=== PATIENT | female | born 1990 | race African-American/Black ===

== ENCOUNTER 2017-04-19 08:44 | Emergency (ER) | payer OTHER, MEDICAID ==
[2017-04-19] MEDS ORDERED: ACETAMINOPHEN 325 MG TABLET PO ONE (08:55)
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
[2017-04-19] MEDS ORDERED: HYDROCODONE/ACETAMINOPHEN 5-325 MG TABLET PO ONE (09:54)
[2017-04-19 10:35] VITALS: BP 127/82
== END 2017-04-19 10:25 | disposition home or self-care (01) ==
LOC: ER 08:44
DX: S40.011A Contusion of right shoulder, initial encounter (principal); V03.10XA Pedestrian on foot injured in collision with car, pick-up truck or van in traffic accident, initial encounter; Y92.410 Unspecified street and highway as the place of occurrence of the external cause
CPT/HCPCS: 99283

== ENCOUNTER 2017-08-30 19:14 | Emergency (ER) | payer MEDICAID, MEDICARE ==
[2017-08-30] MEDS ORDERED: FENTANYL CITRATE INJ/PF 100 MCG/2 ML AMPUL IV ONE (19:46)
--- NOTE | 2017-08-30 19:48 | ER Document Report ---
ED Medical Screen (RME) - General Chief Complaint: Abdominal Pain Stated Complaint: ABDOMINAL PAIN Time Seen by Provider: 08/30/17 19:42 Notes: RME DISCLOSURE I have seen this patient as part of a Rapid Medical Evaluation and, if applicable, placed any initially appropriate orders. The patient will be seen and fully evaluated, including a full history and physical exam, by a provider ( in Main ED or Fast Track) when a room becomes available. 27-year-old female PMH ovarian cyst, left-sided, here with complaints of sudden onset left lower quadrant abdominal pain that started several hours ago. She has had some nausea and vomiting with this as well but no diarrhea. She has not taken anything for the pain. Her largest ovarian cyst has been 7.7 cm requiring operative intervention. No dysuria hematuria frequency hesitancy back pain flank pain fevers chills vaginal bleeding discharge. EXAM Moderate left upper/lower quadrant tenderness TRAVEL OUTSIDE OF THE [place] IN LAST 30 DAYS: No - Related Data Allergies/Adverse Reactions: No Known Allergies Allergy (Verified 08/30/17 19:16) Past Medical History - Social History Frequency of alcohol use: None Drug Abuse: None Renal/ Medical History: Denies: Hx Peritoneal Dialysis Past Surgical History: Reports: Hx Gynecologic Surgery Physical Exam - Vital signs Vitals: Pulse Resp BP Pulse Ox 88 18 126/81 H 100 08/30/17 19:33 08/30/17 19:33 08/30/17 19:33 08/30/17 19:33 Course - Vital Signs Vital signs: Temp Pulse Resp BP Pulse Ox 88 18 126/81 H 100 08/30/17 19:33 08/30/17 19:33 08/30/17 19:33 08/30/17 19:33
[2017-08-30 20:19] LABS: ABSOLUTE BASOPHILS # (AUTO) 0.1 10^3/uL (0.0-0.2); ABSOLUTE EOSINOPHILS # (AUTO) 0.1 10^3/uL (0.0-0.6); ABSOLUTE LYMPHOCYTES (AUTO) 1.8 10^3/uL (0.5-4.7); ABSOLUTE MONOCYTES (AUTO) 0.5 10^3/uL (0.1-1.4); ABSOLUTE NEUT (AUTO) 7.9 10^3/uL (1.7-8.2); EOSINOPHILS % (AUTO) 0.6 % (0-6); HEMATOCRIT 33.7 % (36.0-47.0); HEMOGLOBIN 10.8 g/dL (12.0-15.5); LYMPHOCYTES % (AUTO) 17.2 % (13-45); MEAN CORPUSCULAR HEMOGLOBIN 25.8 pg (27.0-33.4); MEAN CORPUSCULAR HGB CONC 32.1 g/dL (32.0-36.0); MEAN CORPUSCULAR VOLUME 81 fl (80-97); MONOCYTES % (AUTO) 5.1 % (3-13); PLATELET COUNT 463 10^3/uL (150-450); RED BLOOD COUNT 4.18 10^6/uL (3.72-5.28); RED CELL DISTRIBUTION WIDTH 16.4 % (11.5-14.0); SEGMENTED NEUTROPHILS % (AUTO) 76.1 % (42-78); TOTAL CELLS COUNTED % (AUTO) 100 %; WHITE BLOOD COUNT 10.3 10^3/uL (4.0-10.5)
[2017-08-30 20:53] LABS: ALANINE AMINOTRANSFERASE 18 U/L (9-52); ALBUMIN 4.6 g/dL (3.5-5.0); ALKALINE PHOSPHATASE 56 U/L (38-126); ANION GAP 12 (5-19); ASPARTATE AMINO TRANSFERASE 52 U/L (14-36); BILIRUBIN,DIRECT 0.4 mg/dL (0.0-0.4); BILIRUBIN,TOTAL 1.1 mg/dL (0.2-1.3); BLOOD UREA NITROGEN 12 mg/dL (7-20); CALCIUM 9.4 mg/dL (8.4-10.2); CARBON DIOXIDE 23 mmol/L (22-30); CHLORIDE 103 mmol/L (98-107); GLUCOSE 90 mg/dL (75-110); LIPASE 139.6 U/L (23-300); POTASSIUM 3.9 mmol/L (3.6-5.0); SODIUM 138.1 mmol/L (137-145); TOTAL PROTEIN 8.4 g/dL (6.3-8.2)
--- NOTE | 2017-08-30 20:58 | ER Document Report ---
ED GI/ - General Chief Complaint: Abdominal Pain Stated Complaint: ABDOMINAL PAIN Time Seen by Provider: 08/30/17 19:42 Mode of Arrival: Ambulatory Information source: Patient TRAVEL OUTSIDE OF THE [place] IN LAST 30 DAYS: No - HPI Patient complains to provider of: Abdominal pain Notes: 08/30/17 20:56 The patient is here with complaints of abdominal pain. States the pain is in the left lower abdomen. The pain started suddenly approximately 2 hours ago. She does have a prior history of left ovarian cyst that has required surgery as well as previous ectopic . She states that her last menstrual cycle ended on Tuesday. She had one episode of nausea vomiting when the pain started. She denies fevers. She denies dysuria or hematuria. She denies any current vaginal bleeding or discharge. No rash. No injury. She denies any chest pain or shortness of breath. She denies any numbness, tingling, weakness. She was given fentanyl which has improved her pain. Pain is worse with movement or touching the area, nothing in particular seems to make it better. She denies any other complaints at this time. - Related Data Allergies/Adverse Reactions: No Known Allergies Allergy (Verified 08/30/17 19:16) Past Medical History - Social History Smoking Status: Never Smoker Frequency of alcohol use: None Drug Abuse: None Family History: Reviewed & Not Pertinent Patient has suicidal ideation: No Patient has homicidal ideation: No Renal/ Medical History: Denies: Hx Peritoneal Dialysis Past Surgical History: Reports: Hx Gynecologic Surgery Review of Systems - Review of Systems -: Yes All other systems reviewed and negative Physical Exam - Vital signs Vitals: Pulse Resp BP Pulse Ox 88 18 126/81 H 100 08/30/17 19:33 08/30/17 19:33 08/30/17 19:33 08/30/17 19:33 - Notes Notes: GENERAL: alert, cooperative, nontoxic, no distress. HEAD: normocephalic, atraumatic EYES: conjunctiva pink without discharge, no external redness or swelling. EARS: no external swelling, no external redness NOSE: atraumatic, no external swelling MOUTH/THROAT: mucous membranes moist and pink, posterior pharynx without erythema, swelling, exudate. No trismus or drooling. NECK: soft, supple, full range of motion, no meningismus. CHEST: no distress, lungs clear and equal throughout. No wheezing, rales, rhonchi. CARDIAC: regular rate and rhythm, no murmur, normal capillary refill, normal pulses. No peripheral edema noted. ABDOMEN: Soft, tender to the left lower quadrant. No rebound tenderness. Guarding. No rigidity. BACK: full range of motion, no CVA tenderness. EXTREMITIES: full range of motion of all extremities. No redness, no swelling. NEURO: alert and oriented x 3, no focal deficits, full range of motion of all extremities. PYSCH: appropriate mood, affect. Patient is cooperative. SKIN: pink, warm, dry, no rash. : Performed with female gyn at the bedside. No external lesions. Cervix is closed. No discharge. Mild generalized tenderness to the right and left adnexa. Mild cervical motion tenderness. No masses. Course - Re-evaluation Re-evalutation: 08/30/17 23:35 The patient is nontoxic appearing with stable vitals. The patient is having left lower pelvic pain. She is a prior history of ovarian cyst. Pelvic exam shows no discharge. Blood work is unremarkable aside from some mild anemia which the patient states she has a history of. Urinalysis shows no signs of infection and urine is negative. No sign of ectopic . Patient has no signs of PID. Ultrasound today shows 2 ovarian cyst on the left ovary. This is the likely source of her pain today. She will be discharged home with NSAIDs and Ultram with a referral to [facility]. Follow-up with [facility] at the next available appointment. Follow-up sooner for increasing pain, high fever, persistent vomiting, or for any further concerns. The patient is noted to have elevated blood pressure during today's emergency department visit. The patient was informed of this finding. The patient was instructed that this may be related to pre-hypertension and requires further evaluation with a primary care provider. The patient has no hypertensive symptoms at this time. The patient's emergency department workup and current diagnosis were explained to the patient and or family. Follow-up instructions were provided. Medications if prescribed were discussed. Instructions for when to return to the emergency department including specific worrisome symptoms were discussed with the patient and/or family. - Vital Signs Vital signs: Temp Pulse Resp BP Pulse Ox 88 18 123/79 100 08/30/17 19:33 08/30/17 22:01 08/30/17 22:01 08/30/17 22:01 - Laboratory Result Diagrams: 08/30/17 20:07 08/30/17 20:07 Laboratory results interpreted by me: 08/30/17 08/30/17 08/30/17 20:07 20:07 21:15 Hgb 10.8 L Hct 33.7 L MCH 25.8 L RDW 16.4 H Plt Count 463 H AST 52 H Total Protein 8.4 H Urine Ketones TRACE H - Diagnostic Test Radiology reviewed: Image reviewed, Reports reviewed - Ultrasound of the pelvis shows 2 complex cyst in the left ovary. Discharge - Discharge Clinical Impression: Left ovarian cyst Anemia Qualifiers: Anemia type: unspecified type Qualified Code(s): D64.9 - Anemia, unspecified Condition: Stable Disposition: HOME, SELF-CARE Instructions: Ovarian Cyst ([facility]), Anemia ([facility]) Additional Instructions: Take medications as prescribed. Follow-up with [facility] at the next available appointment. Follow-up sooner for increasing pain, high fever, persistent vomiting, or for any further concerns. Your blood pressure was elevated during today's visit. Have this rechecked with your doctor. The medication you were prescribed today may cause drowsiness. Do not drive or operate heavy machinery while taking this medication. Prescriptions: Tramadol HCl [Ultram 50 mg Tablet] 50 mg PO Q6HP PRN #12 tablet PRN Reason: Naproxen [Naprosyn] 500 mg PO BID #20 tablet Forms: Elevated Blood Pressure, Smoking Cessation Education Referrals: TRE FIORE MD [ACTIVE STAFF] - Follow up as needed [facility] [Provider Group] - Follow up as needed
[2017-08-30 21:44] LABS: APPEARANCE,URINE SLIGHTLY-CLOUDY; BILIRUBIN,URINE NEGATIVE (NEGATIVE); COLOR,URINE YELLOW; GLUCOSE, URINE NEGATIVE (NEGATIVE); KETONES,URINE TRACE mg/dL (NEGATIVE); LEUKOCYTE ESTERASE,URINE NEGATIVE (NEGATIVE); NITRITE,URINE NEGATIVE (NEGATIVE); PROTEIN,URINE NEGATIVE (NEGATIVE); UROBILINOGEN,URINE NEGATIVE mg/dL (<2.0)
[2017-08-30] MEDS ORDERED: LIDOCAINE 1% INJ-PF (10 MG/ML) 30 ML SDV INJ ONE (22:41)
[2017-08-30] MEDS ORDERED: CEFTRIAXONE INJ 250 MG VIAL IM ONE (22:41)
[2017-08-30] MEDS ORDERED: AZITHROMYCIN 250 MG TABLET PO ONE (22:41)
[2017-08-30 23:01] LABS: T.VAGINALIS (WET MOUNT) NO TRICHOMONAS SEEN; WBCS (WET MOUNT) RARE WBCS SEEN; YEAST (WET MOUNT) NO YEAST SEEN
--- NOTE | 2017-08-30 23:12 | RADIOLOGY REPORT (SQ) ---
EXAM DESCRIPTION: U/S NON OB PEL TV W/DOPPLER COMPLETED DATE/TIME: 08/30/2017 9:35 pm REASON FOR STUDY: sudden LLQ pain; eval torsion vs cyst COMPARISON: None. TECHNIQUE: Dynamic and static grayscale images acquired of the pelvis via transvaginal approach and recorded on PACS. Additional selected color Doppler and spectral images recorded. LIMITATIONS: None. FINDINGS: UTERUS: Contour normal. No mass. ENDOMETRIAL STRIPE: Heterogeneous echotexture. CERVIX: Small nabothian cysts. RIGHT OVARY: No abnormal masses. RIGHT OVARY DOPPLER: Normal arterial vascular flow without evidence for torsion. LEFT OVARY: Complex cystic lesions, the 1st measuring 2.8 cm, the 2nd measures 4.7 cm. LEFT OVARY DOPPLER: Normal arterial vascular flow without evidence for torsion. FREE FLUID: Small amount of cul-de-sac and left adnexal free fluid. OTHER: No other significant finding. MEASUREMENTS: UTERUS: 10.5 x 5.2 x 4.1 cm ENDOMETRIAL STRIPE: 7 mm RIGHT OVARY: 4.4 x 1.8 x 2.2 cm LEFT OVARY: 6.3 x 5.9 x 2.8 center IMPRESSION: No evidence for torsion. Complex left ovarian cystic lesions, the 1st measuring 2.8 cm, the 2nd measures 4.7 cm. Small amount of cul-de-sac and left adnexal free fluid. Heterogeneous endo metrium. Follow-up ultrasound is recommended in 4 weeks. TECHNICAL DOCUMENTATION: JOB ID: [id number] [email or web address]- All Rights Reserved Reading location - IP/workstation name: [email or web address]
[2017-08-30] MEDS ORDERED: KETOROLAC TROMETHAMINE INJ/PF 30 MG/1 ML SDV IM ONE (23:25)
[2017-08-30] MEDS ORDERED: KETOROLAC TROMETHAMINE INJ/PF 30 MG/1 ML SDV IV ONE (23:28)
[2017-08-31 00:01] VITALS: BP 126/84
[2017-08-31 03:07] LABS: CHLAM PCR NOT DETECTED (NOT DETECT); GON PCR NOT DETECTED (NOT DETECT)
== END 2017-08-30 23:58 | disposition home or self-care (01) ==
LOC: ER 19:14
DX: N83.202 Unspecified ovarian cyst, left side (principal); D64.9 Anemia, unspecified; R10.30 Lower abdominal pain, unspecified
CPT/HCPCS: 99284; 96372; 96374; 36415; 87210; 83690; 85025; 81025; 80053; 81001; 87491; 87591; 76830; 93976; Q0144; J3010; J3490; J1885; J0696

== ENCOUNTER 2017-11-06 13:33 | Emergency (ER) | payer MEDICAID ==
[2017-11-06 13:41] VITALS: BP 141/83
[2017-11-06] MEDS ORDERED: TRAMADOL HCL 50 MG TABLET PO ONE (13:52)
--- NOTE | 2017-11-06 13:54 | ER Document Report ---
ED Medical Screen (RME) - General Chief Complaint: Abdominal Pain Stated Complaint: ABDOMINAL PAIN Time Seen by Provider: 11/06/17 13:51 Notes: RAPID MEDICAL EVALUATION DISCLOSURE I have seen this patient as part of a Rapid Medical Evaluation and, if applicable, placed any initially appropriate orders. The patient will be seen and fully evaluated, including a full history and physical exam, by a provider ( in Main ED or Fast Track) when a room becomes available. 27-year-old female PMH large cystic ovarian cysts here with complaints of right- sided pelvic pain and vaginal bleeding with clots. She describes the pain as severe. She thinks this may be her ovarian cyst again however she does have a history of ectopic but she does not think she is . EXAM Mild suprapubic tenderness Moderate right greater than left pelvic tenderness TRAVEL OUTSIDE OF THE [place] IN LAST 30 DAYS: No - Related Data Allergies/Adverse Reactions: No Known Allergies Allergy (Verified 11/06/17 13:48) Past Medical History Renal/ Medical History: Denies: Hx Peritoneal Dialysis Past Surgical History: Reports: Hx Gynecologic Surgery Physical Exam - Vital signs Vitals: Temp Pulse Resp BP Pulse Ox 97.4 F 73 16 141/83 H 100 11/06/17 13:39 11/06/17 13:39 11/06/17 13:39 11/06/17 13:39 11/06/17 13:39 Course - Vital Signs Vital signs: Temp Pulse Resp BP Pulse Ox 97.4 F 73 16 141/83 H 100 11/06/17 13:39 11/06/17 13:39 11/06/17 13:39 11/06/17 13:39 11/06/17 13:39
[2017-11-06 14:51] LABS: APPEARANCE,URINE SLIGHTLY-CLOUDY; BILIRUBIN,URINE NEGATIVE (NEGATIVE); COLOR,URINE YELLOW; GLUCOSE, URINE NEGATIVE (NEGATIVE); KETONES,URINE NEGATIVE (NEGATIVE); LEUKOCYTE ESTERASE,URINE NEGATIVE (NEGATIVE); NITRITE,URINE NEGATIVE (NEGATIVE); PROTEIN,URINE NEGATIVE (NEGATIVE); URINE SPECIFIC GRAVITY 1.013; UROBILINOGEN,URINE NEGATIVE mg/dL (<2.0)
--- NOTE | 2017-11-06 15:45 | RADIOLOGY REPORT (SQ) ---
EXAM DESCRIPTION: U/S NON OB PEL TV W/DOPPLER COMPLETED DATE/TIME: 11/06/2017 3:30 pm REASON FOR STUDY: h/o large cysts, R pelvic pain; torsion? COMPARISON: 08/30/2017. TECHNIQUE: Dynamic and static grayscale images acquired of the pelvis via transvaginal approach and recorded on PACS. Additional selected color Doppler and spectral images recorded. LIMITATIONS: None. FINDINGS: UTERUS: The uterus is visualized demonstrating normal echogenicity measuring 8.6 x 4.6 x 4 .8 cm. ENDOMETRIAL STRIPE: The endometrial thickness is 3.1 mm which is normal. CERVIX: The cervix is normal measuring 3.2 cm. No nabothian cysts. RIGHT OVARY AND DOPPLER: The right ovary measures 4.3 x 2.3 x 2.8 cm. Doppler flow was noted to the right ovary. LEFT OVARY AND DOPPLER: The left ovary measures 3.4 x 2.6 x 2.9 cm. There is a left ovarian cyst wai suring 2.2 x 1.2 x 1.7 cm. Doppler flow noted to the left ovary. FREE FLUID: Free fluid noted in the cul de sac. IMPRESSION: EVIDENCE OF 2.2 X 1.2 X 1.7 CM LEFT OVARIAN CYST. FREE FLUID IN CUL DE SAC. TECHNICAL DOCUMENTATION: JOB ID: [id number] [employer] All Rights Reserved Rev-11/11 Reading location - IP/workstation name: [email or web address]
--- NOTE | 2017-11-06 16:28 | ER Document Report ---
HPI - HPI Patient complains to provider of: Pelvic pain Onset: Other - 3 days Onset/Duration: Persistent Quality of pain: Cramping Pain Level: 5 Context: Patient presents complaining of lower pelvic cramping with vaginal bleeding for the past 3 days. Patient does complain of some nausea. Patient denies any vomiting diarrhea or fever. Last bowel movement was yesterday. Patient reports a history of ovarian cyst that required surgery and is concerned about this today. Associated Symptoms: Other - Pelvic pain. denies: Fever Exacerbated by: Denies Relieved by: Denies Similar symptoms previously: Yes Recently seen / treated by doctor: No - ROS ROS below otherwise negative: Yes Systems Reviewed and Negative: Yes All other systems reviewed and negative - CONSTITUTIONAL Constitutional: DENIES: Fever, Chills - NEURO Neurology: DENIES: Headache - CARDIOVASCULAR Cardiovascular: DENIES: Chest pain - RESPIRATORY Respiratory: DENIES: Trouble Breathing, Coughing - GASTROINTESTINAL Gastrointestinal: REPORTS: Abdominal Pain, Nausea. DENIES: Patient vomiting, Diarrhea - REPRODUCTIVE LMP: Current - MUSCULOSKELETAL Musculoskeletal: DENIES: Extremity pain, Back Pain - DERM Skin Color: Normal Skin Problems: None Past Medical History - General Information source: Patient - Social History Smoking Status: Never Smoker Chew tobacco use (# tins/day): No Frequency of alcohol use: None Drug Abuse: None Occupation: None Lives with: Family Family History: Reviewed & Not Pertinent Patient has suicidal ideation: No Patient has homicidal ideation: No Renal/ Medical History: Reports: Hx Ovarian Cysts. Denies: Hx Peritoneal Dialysis Past Surgical History: Reports: Hx Gynecologic Surgery Vertical Provider Document - CONSTITUTIONAL Agree With Documented VS: Yes Exam Limitations: No Limitations General Appearance: WD/WN, No Apparent Distress - INFECTION CONTROL TRAVEL OUTSIDE OF THE [place] IN LAST 30 DAYS: No - HEENT HEENT: Atraumatic, Normocephalic - NECK Neck: Normal Inspection, Supple - RESPIRATORY Respiratory: Breath Sounds Normal, No Respiratory Distress - CARDIOVASCULAR Cardiovascular: Regular Rate, Regular Rhythm - GI/ABDOMEN Gastrointestinal: Abdomen Soft, Abdomen Tender - Lower pelvic, No Organomegaly - REPRODUCTIVE Female Genitalia: CMT. negative: Adnexal Pain-Right, Adnexal Pain-Left - BACK Back: Normal Inspection. negative: CVA Tenderness-Right, CVA Tenderness-Left - MUSCULOSKELETAL/EXTREMETIES Musculoskeletal/Extremeties: MAZAIDA, FROM - NEURO Level of Consciousness: Awake, Alert, Appropriate Motor/Sensory: No Motor Deficit, No Sensory Deficit - DERM Integumentary: Warm, Dry, No Rash Course - Re-evaluation Re-evalutation: 11/06/17 17:06 Patient with left lower pelvic pain, patient with ovarian cyst on ultrasound. Patient nontoxic in appearance. Repeat urinalysis does not demonstrate any hematuria. Patient elects to be prophylactically treated for possible STD at this time. Patient presents with abdominal pain without signs of peritonitis or other life-threatening or serious etiology. Patient appears stable for discharge and has been instructed to return immediately if the symptoms worsen in any way, or in 8-12 hours if not improved for reevaluation. The patient has been instructed to return if the symptoms worsen or change in any way. - Vital Signs Vital signs: Temp Pulse Resp BP Pulse Ox 97.4 F 73 16 141/83 H 100 11/06/17 13:39 11/06/17 13:39 11/06/17 13:39 11/06/17 13:39 11/06/17 13:39 - Laboratory Laboratory results interpreted by me: 11/06/17 14:25 Urine Blood LARGE H 11/06/17 17:06 Labs- Entire Visit 11/06/17 11/06/17 11/06/17 14:25 16:24 16:45 Urine Color YELLOW YELLOW Urine Appearance SLIGHTLY-CLOUDY CLEAR Urine pH 8.0 7.0 Ur Specific [place] 1.013 1.015 Urine Protein NEGATIVE NEGATIVE Urine Glucose (UA) NEGATIVE NEGATIVE Urine Ketones NEGATIVE NEGATIVE Urine Blood LARGE H NEGATIVE Urine Nitrite NEGATIVE NEGATIVE Urine Bilirubin NEGATIVE NEGATIVE Urine Urobilinogen NEGATIVE NEGATIVE Ur Leukocyte Esterase NEGATIVE NEGATIVE Urine WBC (Auto) 0 0 Urine RBC (Auto) >182 0 Squamous Epi Cells Auto 2 <1 Urine Mucus (Auto) RARE RARE Urine Ascorbic Acid NEGATIVE NEGATIVE Urine HCG, Qual NEGATIVE Bacteria (Wet Prep) 3+ BACTERIA SEEN Trichomonas (Wet Prep) NO TRICHOMONAS SEEN Vaginal WBC FEW WBCS SEEN Vaginal RBC 3+ RBCS SEEN Vaginal Yeast NO YEAST SEEN - Diagnostic Test Radiology reviewed: Reports reviewed Discharge - Discharge Clinical Impression: Dysmenorrhea Ovarian cyst Qualifiers: Laterality: left Qualified Code(s): N83.202 - Unspecified ovarian cyst, left side Condition: Stable Disposition: HOME, SELF-CARE Instructions: Anti-Inflammatory Medication ([facility]), Dysmenorrhea ([facility]), Ovarian Cyst ([facility]), Pelvic Pain ([facility]) Additional Instructions: Return immediately for any new or worsening symptoms Followup with your primary care provider, call tomorrow to make a followup appointment Follow-up with a supervisor [facility] [employer] for further evaluation, call tomorrow for an appointment Prescriptions: Naproxen [Naprosyn 250 Nmg Tablet] 1 tab PO BID #14 tablet Tramadol HCl [Ultram 50 mg Tablet] 50 mg PO ASDIR PRN #15 tablet PRN Reason: Referrals: AURA RINCON PA-C [Primary Care Provider] - Follow up as needed [facility] [Provider Group] - Follow up as needed
[2017-11-06] MEDS ORDERED: HYDROCODONE/ACETAMINOPHEN 5-325 MG TABLET PO ONE (16:31)
[2017-11-06] MEDS ORDERED: IBUPROFEN 800 MG TABLET PO ONE (16:31)
[2017-11-06] MEDS ORDERED: CEFTRIAXONE INJ 250 MG VIAL IM ONE (16:32)
[2017-11-06] MEDS ORDERED: LIDOCAINE 1% INJ-PF (10 MG/ML) 30 ML SDV INJ ONE (16:32)
[2017-11-06] MEDS ORDERED: AZITHROMYCIN 250 MG TABLET PO ONE (16:32)
[2017-11-06 16:38] LABS: T.VAGINALIS (WET MOUNT) NO TRICHOMONAS SEEN; YEAST (WET MOUNT) NO YEAST SEEN
[2017-11-06 16:39] LABS: BACTERIA (WET MOUNT) 3+ BACTERIA SEEN; RBCS (WET MOUNT) 3+ RBCS SEEN; WBCS (WET MOUNT) FEW WBCS SEEN
[2017-11-06 16:56] LABS: APPEARANCE,URINE CLEAR; BILIRUBIN,URINE NEGATIVE (NEGATIVE); COLOR,URINE YELLOW; GLUCOSE, URINE NEGATIVE (NEGATIVE); KETONES,URINE NEGATIVE (NEGATIVE); LEUKOCYTE ESTERASE,URINE NEGATIVE (NEGATIVE); NITRITE,URINE NEGATIVE (NEGATIVE); PROTEIN,URINE NEGATIVE (NEGATIVE); URINE SPECIFIC GRAVITY 1.015; UROBILINOGEN,URINE NEGATIVE mg/dL (<2.0)
[2017-11-06 18:03] LABS: CHLAM PCR NOT DETECTED (NOT DETECT); GON PCR NOT DETECTED (NOT DETECT)
== END 2017-11-06 17:47 | disposition home or self-care (01) ==
LOC: ER 13:33
DX: N94.6 Dysmenorrhea, unspecified (principal); N83.202 Unspecified ovarian cyst, left side; R10.2 Pelvic and perineal pain
CPT/HCPCS: 99284; 96372; 51701; 87210; 81025; 81001; 87491; 87591; 76830; 93976; Q0144; J3490 ×2; J0696

== ENCOUNTER 2017-12-23 20:59 | Emergency (ER) | payer MEDICAID ==
[2017-12-23 23:18] LABS: APPEARANCE,URINE SLIGHTLY-CLOUDY; BILIRUBIN,URINE NEGATIVE (NEGATIVE); COLOR,URINE YELLOW; GLUCOSE, URINE NEGATIVE (NEGATIVE); KETONES,URINE NEGATIVE (NEGATIVE); LEUKOCYTE ESTERASE,URINE NEGATIVE (NEGATIVE); NITRITE,URINE NEGATIVE (NEGATIVE); PROTEIN,URINE NEGATIVE (NEGATIVE); URINE SPECIFIC GRAVITY 1.012
[2017-12-23] MEDS: MORPHINE SULFATE 10 MG/ML INJ IV PRN (23:40)
[2017-12-23 23:53] LABS: HEMATOCRIT 33.1 % (36.0-47.0); HEMOGLOBIN 10.5 g/dL (12.0-15.5); MEAN CORPUSCULAR HEMOGLOBIN 24.7 pg (27.0-33.4); MEAN CORPUSCULAR HGB CONC 31.8 g/dL (32.0-36.0); MEAN CORPUSCULAR VOLUME 78 fl (80-97); PLATELET COUNT 381 10^3/uL (150-450); RED BLOOD COUNT 4.26 10^6/uL (3.72-5.28); RED CELL DISTRIBUTION WIDTH 18.4 % (11.5-14.0); WHITE BLOOD COUNT 5.5 10^3/uL (4.0-10.5)
[2017-12-24 00:03] LABS: ALANINE AMINOTRANSFERASE 15 U/L (9-52); ALBUMIN 4.7 g/dL (3.5-5.0); ALKALINE PHOSPHATASE 45 U/L (38-126); ANION GAP 11 (5-19); ASPARTATE AMINO TRANSFERASE 33 U/L (14-36); BILIRUBIN,DIRECT 0.3 mg/dL (0.0-0.4); BILIRUBIN,TOTAL 1.2 mg/dL (0.2-1.3); BLOOD UREA NITROGEN 8 mg/dL (7-20); CALCIUM 9.4 mg/dL (8.4-10.2); CARBON DIOXIDE 24 mmol/L (22-30); CHLORIDE 105 mmol/L (98-107); GLUCOSE 87 mg/dL (75-110); SODIUM 139.6 mmol/L (137-145); TOTAL PROTEIN 8.4 g/dL (6.3-8.2)
[2017-12-24 00:20] LABS: ABSOLUTE LYMPHOCYTES# (MANUAL) 2.1 10^3/uL (0.5-4.7); ABSOLUTE MONOCYTES # (MANUAL) 0.4 10^3/uL (0.1-1.4); ABSOLUTE NEUTROPHILS# (MANUAL) 2.9 10^3/uL (1.7-8.2); BASOPHILS % (MANUAL) 0 % (0-2); EOSINOPHILS % (MANUAL) 3 % (0-6); LYMPHOCYTES % (MANUAL) 37 % (13-45); MONOCYTES % (MANUAL) 7 % (3-13); SEGMENTED NEUTROPHILS % (MAN) 52 % (42-78); TOTAL CELLS COUNTED 100
[2017-12-24 00:23] LABS: TOXIC VACUOLATION PRESENT
[2017-12-24 00:24] LABS: HYPOCHROMASIA SLIGHT
[2017-12-24 00:25] LABS: ANISOCYTOSIS 2+; OVALOCYTES 1+; PLATELET COMMENT ADEQUATE; POIKILOCYTOSIS 1+
--- NOTE | 2017-12-24 00:47 | RADIOLOGY REPORT (SQ) ---
EXAM DESCRIPTION: CT ABDOMEN PELVIS WITH IV CONTRAST COMPLETED DATE/TME: 12/24/2017 00:00 CLINICAL HISTORY: worsening bilateral lower abdominal pain COMPARISON: 12/19/2017 TECHNIQUE: CT of the abdomen and pelvis performed following IV administration of 59.2 mL of Isovue-370. Delayed images obtained. DLP: 502.03 mGycm FINDINGS: Lung Bases: The visualized lung bases are clear. Bones: No destructive bone lesions identified. Abdomen: Liver: The liver has normal size and density. No intrahepatic mass or biliary dilatation. Gallbladder: No calcified gallstones. Spleen, Pancreas, and Adrenal Glands: The spleen, pancreas, and adrenal glands are unremarkable. Kidneys: The kidneys have normal size and contour without evidence of solid mass or hydronephrosis. Vasculature: The aorta and IVC have normal caliber and position. The portal vein is patent. The proximal visceral and renal arteries are patent. Stomach: The stomach and duodenum have normal course. Other: No free intraperitoneal air. Small amount of free pelvic fluid. Pelvis: Bladder: Urinary bladder is unremarkable. Bowel: No dilated loops of large or small bowel. Appendix: Normal appendix. Pelvis: Uterus is not enlarged. IMPRESSION: 1. Small amount of free pelvic fluid. This may be physiologic. 2. No other acute abnormality identified in the abdomen or pelvis. This exam was performed according to our departmental dose-optimization program, which includes automated exposure control, adjustment of the mA and/or kV according to patient size and/or use of iterative reconstruction technique.
--- NOTE | 2017-12-24 01:26 | ER Document Report ---
ED General - General Chief Complaint: Pelvic Pain Stated Complaint: PELVIC PAIN Time Seen by Provider: 12/23/17 22:51 Notes: Patient is a 27-year-old female with a past medical history of "8 years" of recurrent lower abdominal pain including multiple prior large ovarian cysts as well as possible endometriosis, seen by me within the past 1 week who presents with ongoing lower abdominal pain. She describes this as a constant, cramping, stabbing pain more dominant to her left lower abdomen. States the [place] and ibuprofen that was prescribed on her recent visit have not improved her pain. Nothing worsens the pain other than moving. She has yet been unable to follow- up with [facility]. She denies any vaginal bleeding, vaginal discharge, dysuria, fever or constitutional symptoms. TRAVEL OUTSIDE OF THE [place] IN LAST 30 DAYS: No - Related Data Allergies/Adverse Reactions: No Known Allergies Allergy (Verified 12/19/17 19:55) Past Medical History - General Information source: Patient - Social History Smoking Status: Never Smoker Frequency of alcohol use: None Drug Abuse: None Lives with: Family Family History: Reviewed & Not Pertinent Patient has suicidal ideation: No Patient has homicidal ideation: No Renal/ Medical History: Reports: Hx Ovarian Cysts. Denies: Hx Peritoneal Dialysis Past Surgical History: Reports: Hx Gynecologic Surgery - ovarian cysts, ectopic Review of Systems - Review of Systems Notes: Constitutional: Negative for fever. HENT: Negative for sore throat. Eyes: Negative for visual changes. Cardiovascular: Negative for chest pain. Respiratory: Negative for shortness of breath. Gastrointestinal: Positive for lower abdominal pain Genitourinary: Negative for dysuria. Musculoskeletal: Negative for back pain. Skin: Negative for rash. Neurological: Negative for headaches, weakness or numbness. 10 point ROS negative except as marked above and in HPI. Physical Exam - Vital signs Vitals: Temp Pulse Resp BP Pulse Ox 98.9 F 92 18 124/79 98 12/23/17 22:47 12/23/17 22:47 12/23/17 22:47 12/23/17 22:47 12/23/17 22:47 Interpretation: Normal Notes: PHYSICAL EXAMINATION: GENERAL: Well-appearing, well-nourished and in no acute distress. HEAD: Atraumatic, normocephalic. EYES: Pupils equal round and reactive to light, extraocular movements intact, sclera anicteric, conjunctiva are normal. ENT: nares patent, oropharynx clear without exudates. Moist mucous membranes. NECK: Normal range of motion, supple without lymphadenopathy LUNGS: Breath sounds clear to auscultation bilaterally and equal. No wheezes rales or rhonchi. HEART: Regular rate and rhythm without murmurs ABDOMEN: Soft, mild diffuse lower abdominal tenderness but no other localized areas of tenderness, normoactive bowel sounds. No guarding, no rebound. No masses appreciated. EXTREMITIES: Normal range of motion, no pitting or edema. No cyanosis. NEUROLOGICAL: No focal neurological deficits. Moves all extremities spontaneously and on command. PSYCH: Moderately anxious SKIN: Warm, Dry, normal turgor, no rashes or lesions noted. Course - Re-evaluation Re-evalutation: 12/24/17 01:31 Patient presents with ongoing, unchanged chronic lower abdominal pain and pelvic pain that she states has persistent since last time I saw her. Vitals remain within normal limits, labs unremarkable. She has not yet follow-up with [facility]. On abdominal exam she does have persistent suprapubic and left lower abdominal tenderness. CT abdomen pelvis were obtained given the patient's persistence of pain and is noted to again show only trace pelvic fluid otherwise unremarkable. I discussed with the patient that she needs to follow- up with [facility] as well as possible chronic pelvic pain clinic given the persistent nature of her symptoms over the past 8 years. At this time will discharge with return precautions and follow-up recommendations. Verbal discharge instructions given a the bedside and opportunity for questions given. Medication warnings reviewed. Patient is in agreement with this plan and has verbalized understanding of return precautions and the need for primary care follow-up in the next 24-72 hours. - Vital Signs Vital signs: Temp Pulse Resp BP Pulse Ox 98.2 F 72 16 118/69 97 12/24/17 01:48 12/24/17 01:48 12/24/17 01:48 12/24/17 01:48 12/24/17 01:48 - Laboratory Result Diagrams: 12/23/17 23:39 12/23/17 23:39 Laboratory results interpreted by me: 12/23/17 12/23/17 12/23/17 23:04 23:39 23:39 Hgb 10.5 L Hct 33.1 L MCV 78 L MCH 24.7 L MCHC 31.8 L RDW 18.4 H Total Protein 8.4 H Urine Blood MODERATE H Urine Urobilinogen 2.0 H - Diagnostic Test Radiology reviewed: Reports reviewed Discharge - Discharge Clinical Impression: Lower abdominal pain, Ruptured ovarian cyst, Chronic abdominal pain Condition: Good Disposition: HOME, SELF-CARE Additional Instructions: Please follow-up with [facility] as scheduled. Your CT scan today is unremarkable with exception of the free fluid that we saw last time. Your labs again are unchanged from prior. For your pain: Take ibuprofen 600 mg and acetaminophen 1000 mg every 6 hours together as needed for pain. If this does not control your pain you may take 15 mg of oral morphine every 4 hours as needed. Please be very careful about using the oral morphine and only use this for severe pain. Prescriptions: Morphine Sulfate [Morphine Ir 15 mg Tablet] 15 mg PO Q4HP PRN #12 tablet PRN Reason: Referrals: AURA RINCON PA-C [Primary Care Provider] - Follow up as needed
[2017-12-24] MEDS: MORPHINE SULFATE 10 MG/ML INJ IV PRN (01:44)
[2017-12-24 01:49] VITALS: BP 118/69
== END 2017-12-24 02:10 | disposition home or self-care (01) ==
LOC: ER 20:59
DX: R10.2 Pelvic and perineal pain (principal); R10.30 Lower abdominal pain, unspecified; N83.209 Unspecified ovarian cyst, unspecified side
CPT/HCPCS: 99284; 96374; 36415; 84703; 85025; 80053; 81001; 74177; J2270 ×2

== ENCOUNTER 2017-12-24 07:55 | Emergency (ER) | payer MEDICAID ==
[2017-12-24] MEDS ORDERED: DIPHENHYDRAMINE HCL 50 MG/ML VIAL IV ONE (08:37)
[2017-12-24] MEDS ORDERED: NORMAL SALINE 1000 ML 1,000 ML IV ONE (08:37)
[2017-12-24] MEDS ORDERED: PROCHLORPERAZINE EDISYLATE INJ 10 MG/2 ML VIAL IV ONE (08:37)
--- NOTE | 2017-12-24 08:39 | ER Document Report ---
HPI - HPI Patient complains to provider of: Nausea Onset: Yesterday Onset/Duration: Gradual Quality of pain: Achy Pain Level: 4 Context: Patient presents complaining of abdominal cramping with nausea. Patient states that she has a history of chronic abdominal pain for the past 8 years. Patient states that she was seen here yesterday for this complaint whenever she left she started to develop nausea with vomiting. Associated Symptoms: Nausea, Vomiting. denies: Nonproductive cough, Fever, Headache Exacerbated by: Denies Relieved by: Denies Similar symptoms previously: Yes Recently seen / treated by doctor: Yes - ROS ROS below otherwise negative: Yes Systems Reviewed and Negative: Yes All other systems reviewed and negative - CONSTITUTIONAL Constitutional: DENIES: Fever, Chills - EENT EENT: DENIES: Sore Throat - NEURO Neurology: DENIES: Headache - CARDIOVASCULAR Cardiovascular: DENIES: Chest pain - RESPIRATORY Respiratory: DENIES: Trouble Breathing, Coughing - GASTROINTESTINAL Gastrointestinal: REPORTS: Abdominal Pain, Nausea, Patient vomiting. DENIES: Diarrhea, Black / Bloody Stools - URINARY Urinary: DENIES: Dysuria - REPRODUCTIVE Reproductive: DENIES: : - DERM Skin Color: Normal Skin Problems: None Past Medical History - General Information source: Patient - Social History Smoking Status: Current Every Day Smoker Smoking Education Provided: Yes Frequency of alcohol use: None Drug Abuse: None Occupation: none Lives with: Family Family History: Reviewed & Not Pertinent Patient has suicidal ideation: No Patient has homicidal ideation: No Renal/ Medical History: Reports: Hx Ovarian Cysts. Denies: Hx Peritoneal Dialysis GI Medical History: Reports: Other - chronic abd pain Past Surgical History: Reports: Hx Gynecologic Surgery - ovarian cysts, ectopic Vertical Provider Document - CONSTITUTIONAL Agree With Documented VS: Yes Exam Limitations: No Limitations General Appearance: WD/WN, No Apparent Distress - INFECTION CONTROL TRAVEL OUTSIDE OF THE [place] IN LAST 30 DAYS: No - HEENT HEENT: Atraumatic, Normocephalic - NECK Neck: Normal Inspection, Supple. negative: Lymphadenopathy-Left, Lymphadenopathy-Right - RESPIRATORY Respiratory: Breath Sounds Normal, No Respiratory Distress - CARDIOVASCULAR Cardiovascular: Regular Rate, Regular Rhythm - GI/ABDOMEN Gastrointestinal: Abdomen Soft, Abdomen Tender - lower pelvic, Normal Bowel Sounds. negative: Abdominal Mass - BACK Back: Normal Inspection. negative: CVA Tenderness-Right, CVA Tenderness-Left - MUSCULOSKELETAL/EXTREMETIES Musculoskeletal/Extremeties: KATE NEWMAN - NEURO Level of Consciousness: Awake, Alert, Appropriate Motor/Sensory: No Motor Deficit - DERM Integumentary: Warm, Dry, No Rash Course - Re-evaluation Re-evalutation: 12/24/17 Patient sleeping, arouses easily to voice. Patient states nausea and vomiting symptoms have resolved at this time. Patient is ready to be discharged home. Patient presents with abdominal pain without signs of peritonitis or other life- threatening or serious etiology. Patient appears stable for discharge and has been instructed to return immediately if the symptoms worsen in any way, or in 8 -12 hours if not improved for reevaluation. The patient has been instructed to return if the symptoms worsen or change in any way. - Vital Signs Vital signs: Temp Pulse Resp BP Pulse Ox 98.1 F 98 18 135/89 H 99 12/24/17 08:00 12/24/17 08:00 12/24/17 08:00 12/24/17 08:00 12/24/17 08:00 - Laboratory Result Diagrams: 12/24/17 09:03 12/24/17 09:03 Laboratory results interpreted by me: 12/24/17 11:27 Labs- Entire Visit 12/24/17 12/24/17 09:03 09:03 WBC 6.4 RBC 4.16 Hgb 10.4 L Hct 31.9 L MCV 77 L MCH 24.9 L MCHC 32.5 RDW 18.0 H Plt Count 338 Seg Neutrophils % 66.9 Lymphocytes % 23.9 Monocytes % 6.3 Eosinophils % 2.0 Basophils % 0.9 Absolute Neutrophils 4.3 Absolute Lymphocytes 1.5 Absolute Monocytes 0.4 Absolute Eosinophils 0.1 Absolute Basophils 0.1 Sodium 143.4 Potassium 3.8 Chloride 105 Carbon Dioxide 25 Anion Gap 13 BUN 8 Creatinine 0.72 Est GFR ( Amer) > 60 Est GFR (Non-Af Amer) > 60 Glucose 93 Calcium 9.4 Total Bilirubin 1.1 Direct Bilirubin 0.2 Neonat Total Bilirubin Not Reportable Neonat Direct Bilirubin Not Reportable Neonat Indirect Bili Not Reportable AST 18 ALT 18 Alkaline Phosphatase 40 Total Protein 7.6 Albumin 4.4 Lipase 288.5 12/24/17 11:31 Reviewed previous ER visit - Diagnostic Test Radiology reviewed: Reports reviewed - From previous ER visit Discharge - Discharge Clinical Impression: Chronic abdominal pain, Nausea Condition: Stable Disposition: HOME, SELF-CARE Instructions: Abdominal Pain ([facility]), Antinausea Medication ([facility]) Additional Instructions: Return immediately for any new or worsening symptoms Followup with your primary care provider, call tomorrow to make a followup appointment Prescriptions: Ondansetron HCl [Zofran 4 mg Tablet] 1 - 2 tab PO Q6 PRN #15 tablet PRN Reason: Forms: Smoking Cessation Education Referrals: AURA RINCON PA-C [Primary Care Provider] - 12/26/17
[2017-12-24 09:19] LABS: ABSOLUTE BASOPHILS # (AUTO) 0.1 10^3/uL (0.0-0.2); ABSOLUTE EOSINOPHILS # (AUTO) 0.1 10^3/uL (0.0-0.6); ABSOLUTE LYMPHOCYTES (AUTO) 1.5 10^3/uL (0.5-4.7); ABSOLUTE MONOCYTES (AUTO) 0.4 10^3/uL (0.1-1.4); ABSOLUTE NEUT (AUTO) 4.3 10^3/uL (1.7-8.2); BASOPHILS % (AUTO) 0.9 % (0-2); HEMATOCRIT 31.9 % (36.0-47.0); HEMOGLOBIN 10.4 g/dL (12.0-15.5); LYMPHOCYTES % (AUTO) 23.9 % (13-45); MEAN CORPUSCULAR HEMOGLOBIN 24.9 pg (27.0-33.4); MEAN CORPUSCULAR HGB CONC 32.5 g/dL (32.0-36.0); MEAN CORPUSCULAR VOLUME 77 fl (80-97); MONOCYTES % (AUTO) 6.3 % (3-13); PLATELET COUNT 338 10^3/uL (150-450); RED BLOOD COUNT 4.16 10^6/uL (3.72-5.28); SEGMENTED NEUTROPHILS % (AUTO) 66.9 % (42-78); TOTAL CELLS COUNTED % (AUTO) 100 %; WHITE BLOOD COUNT 6.4 10^3/uL (4.0-10.5)
[2017-12-24 09:42] LABS: ALANINE AMINOTRANSFERASE 18 U/L (9-52); ALBUMIN 4.4 g/dL (3.5-5.0); ALKALINE PHOSPHATASE 40 U/L (38-126); ANION GAP 13 (5-19); ASPARTATE AMINO TRANSFERASE 18 U/L (14-36); BILIRUBIN,DIRECT 0.2 mg/dL (0.0-0.4); BILIRUBIN,TOTAL 1.1 mg/dL (0.2-1.3); BLOOD UREA NITROGEN 8 mg/dL (7-20); CALCIUM 9.4 mg/dL (8.4-10.2); CARBON DIOXIDE 25 mmol/L (22-30); CHLORIDE 105 mmol/L (98-107); GLUCOSE 93 mg/dL (75-110); LIPASE 288.5 U/L (23-300); POTASSIUM 3.8 mmol/L (3.6-5.0); SODIUM 143.4 mmol/L (137-145); TOTAL PROTEIN 7.6 g/dL (6.3-8.2)
[2017-12-24 10:03] VITALS: BP 131/75
== END 2017-12-24 10:04 | disposition home or self-care (01) ==
LOC: ER 07:55
DX: R11.2 Nausea with vomiting, unspecified (principal); G89.29 Other chronic pain; R10.9 Unspecified abdominal pain; F17.200 Nicotine dependence, unspecified, uncomplicated; Z87.42 Personal history of other diseases of the female genital tract
CPT/HCPCS: 99283; 96361; 96374; 96375; 36415; 83690; 85025; 80053; J1200; J0780; J7030

== ENCOUNTER 2018-01-14 04:04 | Emergency (ER) | payer MEDICAID ==
[2018-01-14 04:23] VITALS: BP 119/76
--- NOTE | 2018-01-14 05:24 | ER Document Report ---
ED GI/ - General Chief Complaint: Vaginal Pain Stated Complaint: VAGINAL PAIN Time Seen by Provider: 01/14/18 05:13 Notes: Patient is a 27-year-old female who comes emergency department for chief complaint of vaginal pain, she states the area is red and sensitive, she denies itching, bumps, discharge, abdominal pain, flank pain, nausea vomiting, fever. She is sexually active with her significant other. She denies any daily medications, only medical history reported is ectopic . TRAVEL OUTSIDE OF THE [place] IN LAST 30 DAYS: No - Related Data Allergies/Adverse Reactions: No Known Allergies Allergy (Verified 12/24/17 07:59) Past Medical History - General Information source: Patient - Social History Smoking Status: Never Smoker Drug Abuse: None Lives with: Family Family History: Reviewed & Not Pertinent Renal/ Medical History: Reports: Hx Ovarian Cysts. Denies: Hx Peritoneal Dialysis Past Surgical History: Reports: Hx Gynecologic Surgery - ovarian cysts, ectopic Review of Systems - Review of Systems Constitutional: No symptoms reported EENT: No symptoms reported Cardiovascular: No symptoms reported Respiratory: No symptoms reported Gastrointestinal: See HPI Genitourinary: See HPI Female Genitourinary: See HPI Musculoskeletal: No symptoms reported Skin: No symptoms reported Hematologic/Lymphatic: No symptoms reported Neurological/Psychological: No symptoms reported Physical Exam - Vital signs Vitals: Temp Pulse Resp BP Pulse Ox 98.7 F 92 18 119/76 100 01/14/18 04:22 01/14/18 04:22 01/14/18 04:22 01/14/18 04:22 01/14/18 04:22 - Notes Notes: GENERAL: Alert, interacts well. No acute distress. HEAD: Normocephalic, atraumatic. EYES: Pupils equal, round, and reactive to light. Extraocular movements intact. ENT: Oral mucosa moist, tongue midline. NECK: Full range of motion. Supple. Trachea midline. LUNGS: Clear to auscultation bilaterally, no wheezes, rales, or rhonchi. No respiratory distress. HEART: Regular rate and rhythm. No murmur ABDOMEN: Soft, non-tender. Non-distended. Bowel sounds present in all 4 quadrants. GENITOURINARY: External exam with no concerning abnormality, speculum exam showing erythematous and tender cervix with moderately large amount of yellowish discharge. No overt cervical motion tenderness. Exam performed with Beryl LAMBERT at bedside. EXTREMITIES: Moves all 4 extremities spontaneously. No edema, normal radial and dorsalis pedis pulses bilaterally. No cyanosis. BACK: no cervical, thoracic, lumbar midline tenderness. No saddle anesthesia, normal distal neurovascular exam. NEUROLOGICAL: Alert and oriented x3. Normal speech. [cranial nerves II through XII grossly intact]. PSYCH: Normal affect, normal mood. SKIN: Warm, dry, normal turgor. No rashes or lesions noted. Course - Re-evaluation Re-evalutation: Soft unremarkable abdomen, well-appearing patient, unremarkable vital signs. Pelvic examination and wet mount consistent with pelvic infection, covering generally, she will also be covered for yeast. Urinalysis unremarkable, hCG negative. Discussed treatment, follow-up, return precautions, recommendations. Patient states understanding and agreement. - Vital Signs Vital signs: Temp Pulse Resp BP Pulse Ox 98.7 F 92 18 119/76 100 01/14/18 04:22 01/14/18 04:22 01/14/18 04:22 01/14/18 04:22 01/14/18 04:22 - Laboratory Laboratory results interpreted by me: 01/14/18 05:35 Urine Ketones TRACE H Urine Urobilinogen 2.0 H Ur Leukocyte Esterase TRACE H Discharge - Discharge Clinical Impression: Vaginal pain, Vaginal discharge Condition: Stable Disposition: HOME, SELF-CARE Additional Instructions: Your evaluation shows a yeast infection and pelvic infection. Gonorrhea and Chlamydia tests still pending. You have been covered for pelvic infection, complete treatment by taking Flagyl at home as prescribed. Follow-up with primary care. Avoid sexual activity for 1 week. Return for any concerning symptoms including vomiting, fever, severe pain, etc. Prescriptions: Metronidazole [Flagyl 500 mg Tablet] 500 mg PO BID #14 tablet Forms: Return to Work
[2018-01-14 06:19] LABS: BACTERIA (WET MOUNT) 3+ BACTERIA SEEN; EPITHELIALS (WET MOUNT) 3+ EPITHELIALS SEEN; RBCS (WET MOUNT) FEW RBCS SEEN; T.VAGINALIS (WET MOUNT) NO TRICHOMONAS SEEN; WBCS (WET MOUNT) 4+ WBCS SEEN; YEAST (WET MOUNT) YEAST SEEN
[2018-01-14 06:44] LABS: APPEARANCE,URINE SLIGHTLY-CLOUDY; BILIRUBIN,URINE NEGATIVE (NEGATIVE); COLOR,URINE YELLOW; GLUCOSE, URINE NEGATIVE (NEGATIVE); KETONES,URINE TRACE mg/dL (NEGATIVE); LEUKOCYTE ESTERASE,URINE TRACE (NEGATIVE); NITRITE,URINE NEGATIVE (NEGATIVE); PROTEIN,URINE NEGATIVE (NEGATIVE); URINE SPECIFIC GRAVITY 1.026
[2018-01-14] MEDS ORDERED: FLUCONAZOLE 100 MG TABLET PO ONE (06:58)
[2018-01-14] MEDS ORDERED: CEFTRIAXONE INJ 250 MG VIAL IM ONE (07:01)
[2018-01-14] MEDS ORDERED: AZITHROMYCIN 250 MG TABLET PO ONE (07:01)
[2018-01-14] MEDS ORDERED: LIDOCAINE 1% INJ-PF (10 MG/ML) 30 ML SDV INJ ONE (07:01)
[2018-01-14] MEDS ORDERED: ONDANSETRON 4 MG TAB.RAPDIS PO ONE (07:01)
[2018-01-14 07:51] LABS: CHLAM PCR NOT DETECTED (NOT DETECT); GON PCR NOT DETECTED (NOT DETECT)
== END 2018-01-14 07:21 | disposition home or self-care (01) ==
LOC: ER 04:04
DX: R10.2 Pelvic and perineal pain (principal); N89.8 Other specified noninflammatory disorders of vagina
CPT/HCPCS: 99284; 96372; 87210; 81025; 81001; 87491; 87591; Q0144; S0119; J3490 ×2; J0696

== ENCOUNTER 2018-03-01 21:22 | Emergency (ER) | payer MEDICAID ==
[2018-03-01 21:33] VITALS: BP 120/84
--- NOTE | 2018-03-01 22:58 | ER Document Report ---
HPI - HPI Patient complains to provider of: sinus pressure, cough, congestion Pain Level: 1 Context: Patient is a 27-year-old female that comes to the emergency department for several days of worsening congestion, sore throat, cough, sinus pressure, and chills. She states that before she got sick her young son also became sick with similar symptoms. She denies difficulty breathing, abdominal pain, vomiting, chest pain. LMP within the past month. She denies any daily medications or medical problems. - REPRODUCTIVE Reproductive: DENIES: : Past Medical History - General Information source: Patient - Social History Smoking Status: Never Smoker Frequency of alcohol use: None Drug Abuse: None Lives with: Family Family History: Reviewed & Not Pertinent - Medical History Medical History: Negative Renal/ Medical History: Reports: Hx Ovarian Cysts. Denies: Hx Peritoneal Dialysis Past Surgical History: Reports: Hx Gynecologic Surgery - ovarian cysts, ectopic - Immunizations Immunizations up to date: Yes Hx Diphtheria, Pertussis, Tetanus Vaccination: Yes Vertical Provider Document - CONSTITUTIONAL General Appearance: WD/WN, No Apparent Distress - INFECTION CONTROL TRAVEL OUTSIDE OF THE [place] IN LAST 30 DAYS: No - HEENT HEENT: Atraumatic, Normocephalic. negative: Normal ENT Exam - Sinus congestion , x-ray sinus tenderness bilaterally, mild erythema of the posterior pharynx with postnasal drip, unremarkable ear exam, unremarkable ENT exam otherwise. - NECK Neck: Normal Inspection - RESPIRATORY Respiratory: Breath Sounds Normal, No Respiratory Distress - CARDIOVASCULAR Cardiovascular: Regular Rate, Regular Rhythm - GI/ABDOMEN Gastrointestinal: Abdomen Soft, Abdomen Non-Tender - BACK Back: Normal Inspection - NEURO Level of Consciousness: Awake, Alert Motor/Sensory: No Motor Deficit, No Sensory Deficit - DERM Integumentary: Warm, Dry, No Rash Course - Re-evaluation Re-evalutation: Patient with viral upper respiratory symptoms, vital signs unremarkable including no hypoxia, tachypnea, or signs of respiratory distress. She does have sinus tenderness over the maxillary sinuses which are worsening, as result she will be treated for sinusitis in addition to cold symptoms treatment. Discussed with patient, discussed return precautions including signs of pneumonia, discussed primary care follow-up. Patient states understanding and agreement. - Vital Signs Vital signs: Temp Pulse Resp BP Pulse Ox 97.7 F 87 18 120/84 100 03/01/18 21:31 03/01/18 21:31 03/01/18 21:31 03/01/18 21:31 03/01/18 21:31 Discharge - Discharge Clinical Impression: Cough, Sinus congestion Sinusitis Qualifiers: Sinusitis location: unspecified location Chronicity: acute Recurrence: non- recurrent Qualified Code(s): J01.90 - Acute sinusitis, unspecified Condition: Stable Disposition: HOME, SELF-CARE Additional Instructions: Your exam is consistent with upper respiratory virus and developing sinus infection. Take medications as prescribed, you can also take additional [id number] medication such as Benadryl at night, Tylenol, ibuprofen. Stay hydrated. Rest. Follow-up with primary care. Return for any concerning symptoms including difficulty breathing, spiking fever, severe headache, etc. Prescriptions: Amoxicillin Trihydrate [Amoxil 875 mg Tablet] 1 tab PO BID #20 tablet Fluticasone Propionate [Flonase Nasal [place] 50 Mcg/[place] 16 gm] 1 spray NASL Q12 #1 inhaler Pseudoephedrine HCl [Sudafed 12 Hour] 120 mg PO Q12 PRN #14 tablet.er PRN Reason:
[2018-03-01] MEDS ORDERED: AMOXICILLIN TRIHYDRATE 500 MG CAPSULE PO ONE (23:09)
== END 2018-03-01 23:17 | disposition home or self-care (01) ==
LOC: ER 21:22
DX: J01.90 Acute sinusitis, unspecified (principal); R05 Cough; R09.81 Nasal congestion
CPT/HCPCS: 99283

== ENCOUNTER 2018-03-02 04:08 | Emergency (ER) | payer MEDICAID | END 2018-03-02 05:50 | disposition home or self-care (01) | LOC: ER 04:08 | DX: R11.2 Nausea with vomiting, unspecified (principal); J32.9 Chronic sinusitis, unspecified | CPT/HCPCS: 99283 ==

== ENCOUNTER 2018-05-14 18:15 | Emergency (ER) | payer MEDICAID ==
[2018-05-14] MEDS ORDERED: HYDROCODONE/ACETAMINOPHEN 5-325 MG TABLET PO ONE (18:56)
--- NOTE | 2018-05-14 19:27 | RADIOLOGY REPORT (SQ) ---
EXAM DESCRIPTION: HAND LEFT 3 VIEWS COMPLETED DATE/TIME: 05/14/2018 7:18 pm REASON FOR STUDY: pain COMPARISON: None. EXAM PARAMETERS: NUMBER OF VIEWS: Three views. TECHNIQUE: AP, lateral and oblique radiographic images acquired of the left hand. LIMITATIONS: None. FINDINGS: MINERALIZATION: Normal. BONES: No acute fracture or dislocation. No worrisome bone lesions. JOINTS: No effusions. SOFT TISSUES: No soft tissue swelling. No foreign body. OTHER: No other significant finding. IMPRESSION: NEGATIVE STUDY OF THE LEFT HAND. NO RADIOGRAPHIC EVIDENCE OF ACUTE INJURY. TECHNICAL DOCUMENTATION: JOB ID: [id number] [employer]- All Rights Reserved Reading location - IP/workstation name: [email or web address]
[2018-05-14] MEDS ORDERED: LORAZEPAM 0.5 MG TABLET PO ONE (19:43)
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
[2018-05-14 20:39] VITALS: BP 140/88
== END 2018-05-14 20:39 | disposition home or self-care (01) ==
LOC: ER 18:15
DX: S69.92XA Unspecified injury of left wrist, hand and finger(s), initial encounter (principal); M79.642 Pain in left hand; F41.9 Anxiety disorder, unspecified; W22.8XXA Striking against or struck by other objects, initial encounter; F17.200 Nicotine dependence, unspecified, uncomplicated
CPT/HCPCS: 99284; 73130; L3908

== ENCOUNTER 2018-09-15 06:59 | Emergency (ER) | payer MEDICAID ==
[2018-09-15] MEDS ORDERED: ACETAMINOPHEN 325 MG TABLET PO ONE (07:33)
--- NOTE | 2018-09-15 07:37 | ER Document Report ---
ED General - General Chief Complaint: Vag Bleeding, +preg <12wks Stated Complaint: VAGINAL BLEEDING Time Seen by Provider: 09/15/18 07:25 Primary Care Provider: [facility] [Provider Group] - Follow up in 3-5 days SHAKILA BENNETT DO [Primary Care Provider] - Follow up as needed TRAVEL OUTSIDE OF THE [place] IN LAST 30 DAYS: No - HPI Notes: Patient is a 28-year-old female that presents to the emergency department for chief complaint of vaginal bleeding and . LMP 08/18/18. Patient states this morning she woke up with suprapubic cramping and brown vaginal bleeding. She states it seemed like a lot of blood. Patient denies any lightheadedness or near syncope. She has had nausea throughout her and did have one episode of emesis today. She denies any associated fevers, chills or urinary complaints. She had an appointment with [facility] in [place] this morning to establish care. Patient has a history of ectopic and one miscarriage in the past. She also reports history of significant ovarian cysts requiring multiple surgeries in the past. Past Medical History: Ovarian cyst Past Surgical History: Ectopic removal, ovarian cyst surgeries Social History: Denies drugs alcohol or tobacco Family History: Reviewed and noncontributory for presenting illness Allergies: Reviewed, see documented allergy list. REVIEW OF SYSTEMS: CONSTITUTIONAL : No fever No chills No diaphoresis No recent illness EENT: No vision changes No congestion No sore throat CARDIOVASCULAR: No chest pain No palpitations RESPIRATORY: No shortness of breath No cough No difficulty breathing GASTROINTESTINAL: abdominal pain nausea vomiting No diarrhea GENITOURINARY: Vaginal bleeding No dysuria No hematuria No difficulty urinating MUSCULOSKELETAL: No back pain No leg pain No arm pain SKIN: No rashes No lesions LYMPHATIC: No swollen, enlarged glands. NEUROLOGICAL: No lightheadedness No headache No weakness No paresthesias PSYCHIATRIC: No anxiety No depression PHYSICAL EXAMINATION: Vital signs reviewed, nursing noted reviewed. GENERAL: Well-appearing, well-nourished and in no acute distress. HEAD: Atraumatic, normocephalic. EYES: Eyes appear normal, extraocular movements intact, sclera anicteric, conjunctiva are normal. ENT: nares patent, oropharynx clear without exudates. Moist mucous membranes. NECK: Normal range of motion, supple without lymphadenopathy LUNGS: Breath sounds clear to auscultation bilaterally and equal. No wheezes rales or rhonchi. HEART: Regular rate and rhythm without murmurs ABDOMEN: Soft, nontender, normoactive bowel sounds. No rebound, guarding, or rigidity. No masses appreciated. EXTREMITIES: Nontender, good range of motion, no pitting or edema. NEUROLOGICAL: No focal neurological deficits. Moves all extremities spontaneously Motor and sensory grossly intact on exam. PSYCH: Normal mood, normal affect. SKIN: Warm, Dry, normal turgor, no rashes or lesions noted on exposed skin - Related Data Allergies/Adverse Reactions: No Known Allergies Allergy (Verified 03/01/18 21:28) Past Medical History - Social History Smoking Status: Unknown if Ever Smoked Chew tobacco use (# tins/day): No Frequency of alcohol use: None Drug Abuse: None Family History: Reviewed & Not Pertinent Patient has suicidal ideation: No Patient has homicidal ideation: No Renal/ Medical History: Reports: Hx Ovarian Cysts. Denies: Hx Peritoneal Dialysis Past Surgical History: Reports: Hx Gynecologic Surgery - ovarian cysts, ectopic - Immunizations Immunizations up to date: Yes Hx Diphtheria, Pertussis, Tetanus Vaccination: Yes Physical Exam - Vital signs Vitals: Temp Pulse Resp BP Pulse Ox 98.1 F 107 H 19 115/64 100 09/15/18 07:05 09/15/18 07:05 09/15/18 07:05 09/15/18 07:05 09/15/18 07:05 Course - Re-evaluation Re-evalutation: 09/15/18 07:36 Vitals reviewed. Nursing notes reviewed. Patient is mildly tachycardic at presentation but is expressing that she is mad she has not been emergently put in a room and evaluated immediately. Patient was expressing a desire to leave prior to being evaluated because of her displeasure with how she was treated however after my conversation she is now agreeing to stay. Ultrasound will be obtained to evaluate for possible ectopic . Patient given Tylenol for pain. 09/15/18 09:35 Patient's beta-hCG level is too low for any intrauterine gestation to be visualized. I did discuss her case with Dr. Pelletier who recommends repeat beta-hCG in 48 hours to assure that it is doubling appropriately. That would be Tuesday and she was told if she is unable to see [facility] she should return to the ED. Laboratory 09/15/18 09/15/18 09/15/18 07:40 07:40 07:40 WBC 5.2 RBC 4.09 Hgb 9.7 L Hct 30.4 L MCV 74 L MCH 23.7 L MCHC 31.9 L RDW 19.7 H Plt Count 420 Total Counted 100 Seg Neutrophils % Not Reportable Seg Neuts % (Manual) 42 Lymphocytes % Not Reportable Lymphocytes % (Manual) 43 Atypical Lymphs % 1 Monocytes % Not Reportable Monocytes % (Manual) 11 Eosinophils % Not Reportable Eosinophils % (Manual) 2 Basophils % Not Reportable Basophils % (Manual) 1 Absolute Neutrophils Not Reportable Abs Neuts (Manual) 2.2 Absolute Lymphocytes Not Reportable Abs Lymphs (Manual) 2.3 Absolute Monocytes Not Reportable Abs Monocytes (Manual) 0.6 Absolute Eosinophils Not Reportable Absolute Eos (Manual) 0.1 Absolute Basophils Not Reportable Abs Basophils (Manual) 0.1 Clumped Platelets PRESENT Platelet Comment ADEQUATE Polychromasia SLIGHT Hypochromasia 1+ Poikilocytosis 1+ Anisocytosis 2+ Microcytosis 1+ Tear Drop Cells SLIGHT Ovalocytes 1+ Helmet Cells SLIGHT Acanthocytes (Spur) SLIGHT Beta HCG, Quant 265.83 H Total Beta HCG POSITIVE Urine Color Urine Appearance Urine pH Ur Specific [place] Urine Protein Urine Glucose (UA) Urine Ketones Urine Blood Urine Nitrite Urine Bilirubin Urine Urobilinogen Ur Leukocyte Esterase Urine WBC (Auto) Urine RBC (Auto) Squamous Epi Cells Auto Urine Mucus (Auto) Urine Ascorbic Acid Blood Type AB POSITIVE Rhogam Indicated RHOGAM NOT INDICATED 09/15/18 07:40 WBC RBC Hgb Hct MCV MCH MCHC RDW Plt Count Total Counted Seg Neutrophils % Seg Neuts % (Manual) Lymphocytes % Lymphocytes % (Manual) Atypical Lymphs % Monocytes % Monocytes % (Manual) Eosinophils % Eosinophils % (Manual) Basophils % Basophils % (Manual) Absolute Neutrophils Abs Neuts (Manual) Absolute Lymphocytes Abs Lymphs (Manual) Absolute Monocytes Abs Monocytes (Manual) Absolute Eosinophils Absolute Eos (Manual) Absolute Basophils Abs Basophils (Manual) Clumped Platelets Platelet Comment Polychromasia Hypochromasia Poikilocytosis Anisocytosis Microcytosis Tear Drop Cells Ovalocytes Helmet Cells Acanthocytes (Spur) Beta HCG, Quant Total Beta HCG Urine Color YELLOW Urine Appearance CLEAR Urine pH 6.0 Ur Specific [place] 1.011 Urine Protein NEGATIVE Urine Glucose (UA) NEGATIVE Urine Ketones TRACE H Urine Blood MODERATE H Urine Nitrite NEGATIVE Urine Bilirubin NEGATIVE Urine Urobilinogen NEGATIVE Ur Leukocyte Esterase NEGATIVE Urine WBC (Auto) 1 Urine RBC (Auto) 0 Squamous Epi Cells Auto 4 Urine Mucus (Auto) RARE Urine Ascorbic Acid NEGATIVE Blood Type Rhogam Indicated Obstetrics Ultrasound 09/15/18 07:25 IMPRESSION: NO VISUALIZED INTRA- OR EXTRAUTERINE . bHCG LEVEL TOO LOW TO EXPECT VISUALIZATION OF . ECTOPIC CANNOT BE EXCLUDED. FOLLOW-UP ULTRASOUND AND SERIAL BHCG LEVELS STRONGLY RECOMMENDED TO ACCURATELY ASSESS STATUS. Patient told to return to the emergency room for new or concerning symptoms. She is stable for discharge. - Vital Signs Vital signs: Temp Pulse Resp BP Pulse Ox 98.1 F 107 H 19 115/64 100 09/15/18 07:05 09/15/18 07:05 09/15/18 07:05 09/15/18 07:05 09/15/18 07:05 - Laboratory Result Diagrams: 09/15/18 07:40 Laboratory results interpreted by me: 09/15/18 09/15/18 09/15/18 07:40 07:40 07:40 Hgb 9.7 L Hct 30.4 L MCV 74 L MCH 23.7 L MCHC 31.9 L RDW 19.7 H Beta HCG, Quant 265.83 H Urine Ketones TRACE H Urine Blood MODERATE H Discharge - Discharge Clinical Impression: Threatened miscarriage in early Condition: Stable Instructions: Threatened Miscarriage ([facility]), Ectopic Precaution ([facility]) Additional Instructions: Please return to the emergency department if you have any worsening, or concern of your symptoms. Please return to the emergency department if you develop chest pain, difficulty breathing, severe abdominal pain, or ongoing vomiting. Please follow-up with your primary care physician in 2-3 days and any other recommended physicians. If prescribed, take all medications as directed. If you have any questions or concerns do not hesitate to return the emergency department for evaluation. There was nothing visualized on your ultrasound because you are too early on in your . You need to have your hormone levels rechecked in 48 hours. Since nothing could be visualized we cannot completely exclude ectopic and if you are having any increased pain or bleeding you should return to the emergency room. Referrals: SHAKILA BENNETT DO [Primary Care Provider] - Follow up as needed [facility] [Provider Group] - 09/18/18
[2018-09-15 07:57] LABS: APPEARANCE,URINE CLEAR; BILIRUBIN,URINE NEGATIVE (NEGATIVE); COLOR,URINE YELLOW; GLUCOSE, URINE NEGATIVE (NEGATIVE); KETONES,URINE TRACE mg/dL (NEGATIVE); LEUKOCYTE ESTERASE,URINE NEGATIVE (NEGATIVE); NITRITE,URINE NEGATIVE (NEGATIVE); PROTEIN,URINE NEGATIVE (NEGATIVE); URINE SPECIFIC GRAVITY 1.011; UROBILINOGEN,URINE NEGATIVE mg/dL (<2.0)
[2018-09-15 08:02] LABS: HEMATOCRIT 30.4 % (36.0-47.0); HEMOGLOBIN 9.7 g/dL (12.0-15.5); MEAN CORPUSCULAR HEMOGLOBIN 23.7 pg (27.0-33.4); MEAN CORPUSCULAR HGB CONC 31.9 g/dL (32.0-36.0); MEAN CORPUSCULAR VOLUME 74 fl (80-97); RED BLOOD COUNT 4.09 10^6/uL (3.72-5.28); RED CELL DISTRIBUTION WIDTH 19.7 % (11.5-14.0); WHITE BLOOD COUNT 5.2 10^3/uL (4.0-10.5)
[2018-09-15 08:49] LABS: ABSOLUTE LYMPHOCYTES# (MANUAL) 2.3 10^3/uL (0.5-4.7); ABSOLUTE MONOCYTES # (MANUAL) 0.6 10^3/uL (0.1-1.4); ABSOLUTE NEUTROPHILS# (MANUAL) 2.2 10^3/uL (1.7-8.2); BASOPHILS % (MANUAL) 1 % (0-2); EOSINOPHILS % (MANUAL) 2 % (0-6); LYMPHOCYTES % (MANUAL) 43 % (13-45); MONOCYTES % (MANUAL) 11 % (3-13); SEGMENTED NEUTROPHILS % (MAN) 42 % (42-78); TOTAL CELLS COUNTED 100
[2018-09-15 08:52] LABS: HYPOCHROMASIA 1+; POLYCHROMASIA SLIGHT
[2018-09-15 08:53] LABS: ANISOCYTOSIS 2+; HELMET CELLS SLIGHT; OVALOCYTES 1+; PLATELET CLUMPS PRESENT; PLATELET COMMENT ADEQUATE; PLATELET COUNT 420 10^3/uL (150-450); POIKILOCYTOSIS 1+; TEAR DROP CELLS SLIGHT
--- NOTE | 2018-09-15 09:30 | RADIOLOGY REPORT (SQ) ---
EXAM DESCRIPTION: U/S OB TRANSVAGINAL W/O DOP COMPLETED DATE/TIME: 09/15/2018 9:09 am REASON FOR STUDY: vaginal bleeding COMPARISON: None. TECHNIQUE: Transvaginal static and realtime grayscale images acquired of the pelvis. Additional arianna cted spectral and color Doppler images recorded. All images stored on PACs. CLINICAL AGE: 4 week 0 days. BHC.83 LIMITATIONS: None. FINDINGS: UTERUS: No visualized intrauterine . RIGHT ADNEXA: Normal ovary with normal vascular flow. No adnexal free fluid. No adnexal masses. LEFT ADNEXA: Normal ovary with normal vascular flow. No adnexal free fluid. No adnexal masses. FREE FLUID: None. OTHER: No other significant finding. IMPRESSION: NO VISUALIZED INTRA- OR EXTRAUTERINE . bHCG LEVEL TOO LOW TO EXPECT VISUALIZATION OF . ECTOPIC CANNOT BE EXCLUDED. FOLLOW-UP ULTRASOUND AND SERIAL BHCG LEVELS STRONGLY RECOMMENDED TO ACCURATELY ASSESS STATU S. TECHNICAL DOCUMENTATION: JOB ID: [id number] [employer]- All Rights Reserved Reading location - IP/workstation name: [email or web address]
[2018-09-15 09:43] VITALS: BP 119/72
== END 2018-09-15 09:43 | disposition home or self-care (01) ==
LOC: ER 06:59
DX: O20.0 Threatened abortion (principal); O21.9 Vomiting of pregnancy, unspecified; O26.891 Other specified pregnancy related conditions, first trimester; R00.0 Tachycardia, unspecified; R10.9 Unspecified abdominal pain; Z3A.01 Less than 8 weeks gestation of pregnancy; Z87.59 Personal history of other complications of pregnancy, childbirth and the puerperium; Z87.42 Personal history of other diseases of the female genital tract
CPT/HCPCS: 99284; 86900; 86901; 36415; 84702; 85025; 81001; 76817; J3490

== ENCOUNTER 2018-09-20 07:55 | Emergency (ER) | payer MEDICAID ==
[2018-09-20] MEDS ORDERED: NORMAL SALINE 1000 ML 1,000 ML IV ONE (08:15)
[2018-09-20] MEDS ORDERED: DIPHENHYDRAMINE HCL 50 MG/ML VIAL IV ONE (08:15)
[2018-09-20] MEDS ORDERED: METOCLOPRAMIDE HCL INJ/PF 10 MG/2 ML SDV IV ONE (08:17)
--- NOTE | 2018-09-20 08:19 | ER Document Report ---
ED GI/ - General Chief Complaint: Abdominal Pain Stated Complaint: ABDOMINAL PAIN Time Seen by Provider: 09/20/18 08:03 Primary Care Provider: TRE FIORE MD [ACTIVE STAFF] - 09/22/18 Mode of Arrival: Medic Information source: Patient Notes: Patient states she is about 5 weeks has had vaginal bleeding since August 18. Patient states she had bright red blood today and has been bleeding heavily which prompted her to call EMS. Patient does complain of low back pain. TRAVEL OUTSIDE OF THE [place] IN LAST 30 DAYS: No - HPI Patient complains to provider of: Pelvic pain, , Vaginal bleeding. No: Vaginal discharge Onset: Other - 08/18/18 Timing/Duration: Worse Quality of pain: Cramping Pain Level: 3 Context: Location: Low back Vaginal bleeding (Compared to normal period): Bright red Menstrual period history: Sexual history: Active Associated symptoms: Nausea. denies: Dysuria, Fever, Urinary hesitancy, Urinary frequency, Urinary retention, Urinary urgency, Vomiting Exacerbated by: Denies Relieved by: Denies Similar symptoms previously: Yes Recently seen / treated by doctor: Yes - Related Data Allergies/Adverse Reactions: No Known Allergies Allergy (Verified 03/01/18 21:28) Past Medical History - General Information source: Patient Last Menstrual Period: 5 wk preg - Social History Smoking Status: Never Smoker Frequency of alcohol use: None Drug Abuse: None Occupation: none Lives with: Family Family History: Reviewed & Not Pertinent Patient has suicidal ideation: No Patient has homicidal ideation: No Renal/ Medical History: Reports: Hx Ovarian Cysts. Denies: Hx Peritoneal Dialysis Past Surgical History: Reports: Hx Gynecologic Surgery - ovarian cysts, ectopic - Immunizations Immunizations up to date: Yes Hx Diphtheria, Pertussis, Tetanus Vaccination: Yes Review of Systems - Review of Systems Constitutional: No symptoms reported. denies: Recent illness EENT: No symptoms reported Cardiovascular: No symptoms reported Respiratory: No symptoms reported. denies: Cough, Short of breath Gastrointestinal: Abdominal pain. denies: Vomiting Genitourinary: No symptoms reported. denies: Dysuria Female Genitourinary: . denies: Vaginal discharge Musculoskeletal: Back pain Skin: No symptoms reported Hematologic/Lymphatic: No symptoms reported Neurological/Psychological: No symptoms reported Physical Exam - Vital signs Vitals: Temp Pulse Resp BP Pulse Ox 98.2 F 116 H 20 125/71 100 09/20/18 08:01 09/20/18 08:01 09/20/18 08:01 09/20/18 08:01 09/20/18 08:01 - General General appearance: Appears well, Alert In distress: None - HEENT Head: Normocephalic, Atraumatic Eyes: Normal Conjunctiva: Normal Nasal: Normal Mouth/Lips: Normal Mucous membranes: Normal Neck: Normal, Supple. No: Lymphadenopathy - Respiratory Respiratory status: No respiratory distress Chest status: Nontender Breath sounds: Normal. No: Rales, Rhonchi, Stridor, Wheezing Chest palpation: Normal - Cardiovascular Rhythm: Regular Heart sounds: S1 appreciated, S2 appreciated Murmur: No - Abdominal Inspection: Normal Distension: No distension Bowel sounds: Normal Tenderness: Tender - Lower pelvic tenderness - Genitourinary External exam: Normal Speculum exam: Cervix closed. No: Vaginal discharge Vaginal bleeding: Mild - old appearing vag blood [place] exam: Normal - Back Back: Normal, Tender. No: CVA tenderness - Extremities General upper extremity: Normal inspection, Nontender, Normal ROM General lower extremity: Normal inspection, Nontender, Normal ROM - Neurological Neuro grossly intact: Yes Cognition: Normal Michelle Coma Scale Eye Opening: Spontaneous [place] Coma Scale Verbal: Oriented Michelle Coma Scale Motor: Obeys Commands Michelle Coma Scale Total: 15 - Psychological Associated symptoms: Normal affect, Normal mood - Skin Skin Temperature: Warm Skin Moisture: Dry Skin Color: Normal Course - Re-evaluation Re-evalutation: 09/20/18 12:01 Dr. Araujo called with concerns that patient has a gestational sac in the uterine fundus that is worrisome for possible interstitial . She states there is noted blood in the endometrial canal as well. Consulted with Dr. Falcon who advises consultation with [facility]. Spoke with Dr. Fiore who is on for [facility] who plans to come to the ER and evaluate patient. 09/20/18 12:[address] Fiore who reviewed patient's ultrasound. Does not want to start methotrexate or plan for any surgical procedure at this time. Prefers to have outpatient quantitative hCG recheck in 2 days and have her follow-up in the office to see her Tuesday afternoon. Advises given strict return precautions for any increased pain, increased bleeding or any concerning symptoms to return immediately to the ER. - Vital Signs Vital signs: Temp Pulse Resp BP Pulse Ox 98.4 F 104 H 17 118/67 100 09/20/18 12:02 09/20/18 12:02 09/20/18 12:02 09/20/18 12:02 09/20/18 12:13 - Laboratory Result Diagrams: 09/20/18 08:15 Laboratory results interpreted by me: 09/20/18 09/20/18 09/20/18 08:15 08:15 08:15 Hgb 11.5 L Hct 35.1 L MCV 75 L MCH 24.5 L RDW 20.1 H Plt Count 504 H Eosinophils % (Manual) 7 H Beta HCG, Quant 2431.40 H Urine Blood MODERATE H Labs- Entire Visit 09/20/18 09/20/18 09/20/18 08:15 08:15 08:15 WBC 6.9 RBC 4.68 Hgb 11.5 L Hct 35.1 L MCV 75 L MCH 24.5 L MCHC 32.7 RDW 20.1 H Plt Count 504 H Total Counted 100 Seg Neutrophils % Not Reportable Seg Neuts % (Manual) 63 Lymphocytes % Not Reportable Lymphocytes % (Manual) 27 Monocytes % Not Reportable Monocytes % (Manual) 3 Eosinophils % Not Reportable Eosinophils % (Manual) 7 H Basophils % Not Reportable Basophils % (Manual) 0 Absolute Neutrophils Not Reportable Abs Neuts (Manual) 4.3 Absolute Lymphocytes Not Reportable Abs Lymphs (Manual) 1.9 Absolute Monocytes Not Reportable Abs Monocytes (Manual) 0.2 Absolute Eosinophils Not Reportable Absolute Eos (Manual) 0.5 Absolute Basophils Not Reportable Abs Basophils (Manual) 0.0 Toxic Vacuolation PRESENT Platelet Comment INCREASED Poikilocytosis 1+ Anisocytosis 2+ Microcytosis 1+ Ovalocytes 1+ Beta HCG, Quant 2431.40 H Total Beta HCG POSITIVE Urine Color STRAW Urine Appearance CLEAR Urine pH 6.0 Ur Specific [place] 1.008 Urine Protein NEGATIVE Urine Glucose (UA) NEGATIVE Urine Ketones NEGATIVE Urine Blood MODERATE H Urine Nitrite NEGATIVE Urine Bilirubin NEGATIVE Urine Urobilinogen NEGATIVE Ur Leukocyte Esterase NEGATIVE Urine WBC (Auto) 1 Urine RBC (Auto) 3 Squamous Epi Cells Auto <1 Urine Mucus (Auto) RARE Urine Ascorbic Acid NEGATIVE Epi Cells (Wet Prep) Bacteria (Wet Prep) Trichomonas (Wet Prep) Vaginal WBC Vaginal RBC Vaginal Yeast Chlamydia DNA (PCR) N.gonorrhoeae DNA (PCR) 09/20/18 09/20/18 09:05 09:10 WBC RBC Hgb Hct MCV MCH MCHC RDW Plt Count Total Counted Seg Neutrophils % Seg Neuts % (Manual) Lymphocytes % Lymphocytes % (Manual) Monocytes % Monocytes % (Manual) Eosinophils % Eosinophils % (Manual) Basophils % Basophils % (Manual) Absolute Neutrophils Abs Neuts (Manual) Absolute Lymphocytes Abs Lymphs (Manual) Absolute Monocytes Abs Monocytes (Manual) Absolute Eosinophils Absolute Eos (Manual) Absolute Basophils Abs Basophils (Manual) Toxic Vacuolation Platelet Comment Poikilocytosis Anisocytosis Microcytosis Ovalocytes Beta HCG, Quant Total Beta HCG Urine Color Urine Appearance Urine pH Ur Specific [place] Urine Protein Urine Glucose (UA) Urine Ketones Urine Blood Urine Nitrite Urine Bilirubin Urine Urobilinogen Ur Leukocyte Esterase Urine WBC (Auto) Urine RBC (Auto) Squamous Epi Cells Auto Urine Mucus (Auto) Urine Ascorbic Acid Epi Cells (Wet Prep) 3+ EPITHELIALS SEEN Bacteria (Wet Prep) 3+ BACTERIA SEEN Trichomonas (Wet Prep) NO TRICHOMONAS SEEN Vaginal WBC FEW WBCS SEEN Vaginal RBC 1+ RBCS SEEN Vaginal Yeast NO YEAST SEEN Chlamydia DNA (PCR) NOT DETECTED N.gonorrhoeae DNA (PCR) NOT DETECTED - Diagnostic Test Radiology reviewed: Reports reviewed Discharge - Discharge Clinical Impression: Threatened miscarriage in early Condition: Stable Disposition: HOME, SELF-CARE Instructions: Ectopic Precaution ([facility]) Additional Instructions: Return immediately for any new or worsening symptoms Followup with your primary care provider, call tomorrow to make a followup appointment Follow-up with the lab here at the hospital on Tuesday morning to have your blood test redrawn. After you have your blood redrawn Dr. Fiore would like to see you in the office at [facility] for a follow-up. Call today to make the Tuesday afternoon appointment with Dr. Fiore. Return immediately for any increased pain, increased bleeding, lightheadedness dizziness or any concerning symptoms. Forms: Follow-Up Laboratory Testing Referrals: TRE FIORE MD [ACTIVE STAFF] - 09/22/18
[2018-09-20 09:07] LABS: HEMATOCRIT 35.1 % (36.0-47.0); HEMOGLOBIN 11.5 g/dL (12.0-15.5); MEAN CORPUSCULAR HEMOGLOBIN 24.5 pg (27.0-33.4); MEAN CORPUSCULAR HGB CONC 32.7 g/dL (32.0-36.0); MEAN CORPUSCULAR VOLUME 75 fl (80-97); PLATELET COUNT 504 10^3/uL (150-450); RED BLOOD COUNT 4.68 10^6/uL (3.72-5.28); RED CELL DISTRIBUTION WIDTH 20.1 % (11.5-14.0); WHITE BLOOD COUNT 6.9 10^3/uL (4.0-10.5)
[2018-09-20 09:31] LABS: ABSOLUTE LYMPHOCYTES# (MANUAL) 1.9 10^3/uL (0.5-4.7); ABSOLUTE MONOCYTES # (MANUAL) 0.2 10^3/uL (0.1-1.4); ABSOLUTE NEUTROPHILS# (MANUAL) 4.3 10^3/uL (1.7-8.2); BASOPHILS % (MANUAL) 0 % (0-2); EOSINOPHILS % (MANUAL) 7 % (0-6); LYMPHOCYTES % (MANUAL) 27 % (13-45); MONOCYTES % (MANUAL) 3 % (3-13); SEGMENTED NEUTROPHILS % (MAN) 63 % (42-78); TOTAL CELLS COUNTED 100
[2018-09-20 09:35] LABS: ANISOCYTOSIS 2+; PLATELET COMMENT INCREASED
[2018-09-20 09:36] LABS: OVALOCYTES 1+; POIKILOCYTOSIS 1+; TOXIC VACUOLATION PRESENT
[2018-09-20 09:55] LABS: APPEARANCE,URINE CLEAR; BILIRUBIN,URINE NEGATIVE (NEGATIVE); COLOR,URINE STRAW; GLUCOSE, URINE NEGATIVE (NEGATIVE); KETONES,URINE NEGATIVE (NEGATIVE); LEUKOCYTE ESTERASE,URINE NEGATIVE (NEGATIVE); NITRITE,URINE NEGATIVE (NEGATIVE); PROTEIN,URINE NEGATIVE (NEGATIVE); URINE SPECIFIC GRAVITY 1.008; UROBILINOGEN,URINE NEGATIVE mg/dL (<2.0)
[2018-09-20 09:55] LABS: BACTERIA (WET MOUNT) 3+ BACTERIA SEEN; EPITHELIALS (WET MOUNT) 3+ EPITHELIALS SEEN; RBCS (WET MOUNT) 1+ RBCS SEEN; T.VAGINALIS (WET MOUNT) NO TRICHOMONAS SEEN; WBCS (WET MOUNT) FEW WBCS SEEN; YEAST (WET MOUNT) NO YEAST SEEN
[2018-09-20 11:16] LABS: CHLAM PCR NOT DETECTED (NOT DETECT); GON PCR NOT DETECTED (NOT DETECT)
--- NOTE | 2018-09-20 12:08 | RADIOLOGY REPORT (SQ) ---
EXAM DESCRIPTION: U/S OB TRANSVAGINAL W/O DOP COMPLETED DATE/TIME: 09/20/2018 11:30 am REASON FOR STUDY: pelvic pain, bleeding COMPARISON: OB ultrasound 09/15/2018 TECHNIQUE: Transvaginal static and realtime grayscale images acquired of the pelvis. Additional arianna cted spectral and color Doppler images recorded. All images stored on PACs. bHCG: Today, greater than 2000 CLINICAL DATES: Last menses 08/18/2018 LIMITATIONS: None. FINDINGS: UTERUS: Uterus is 10 x 5 x 6 cm in size. In the rightward uterine fundus, an intrauterine gestational sac and yolk sac is identified. Surrounding trophoblastic reaction extends to the subse blanco surface of the fundal uterus, this finding is worrisome for interstitial tubal . This finding was discussed with Caroline Escobedo in the emergency room, 1145 hours 09/20/2018. The endometrial canal is distended with thickened endometrium as well as heterogeneous hypoechoic mat erial worrisome for blood clot. GESTATIONAL SAC: Gestational sac in the rightward fundal uterus, worrisome for interstitial . Possible yolk sac is identified. POLE: Not identified RIGHT ADNEXA: Normal ovary with normal vascular flow. Right ovary 3.2 x 2.9 x 3 cm in size, with a 1 .6 cm corpus luteum No adnexal free fluid. No adnexal masses. LEFT ADNEXA: Normal ovary with normal vascular flow. Left ovary 3.6 x 2.5 x 2.2 cm in size No adnexal free fluid. No adnexal masses. FREE FLUID: None. OTHER: No other significant finding. IMPRESSION: Intrauterine gestational sac and yolk sac identified along the rightward uterine fundal region. Gestational trophoblastic reaction approaches the subserosal myometrium, findings are worris ome for an interstitial . Findings discussed with the emergency room provider as a critical result Trimester of : First - 0 to 13 weeks. COMMENT: Pertinent findings on the imaging study reported as a CRITICAL RESULT to MICHELLE ESCOBEDO NP at11:45 on 09/20/2018. Category of Critical Result: Interstitial (ectopic ). TECHNICAL DOCUMENTATION: JOB ID: [id number]- All Rights Reserved Reading location - IP/workstation name: [email or web address]
[2018-09-20 12:25] VITALS: BP 118/67
== END 2018-09-20 12:30 | disposition home or self-care (01) ==
LOC: ER 07:55
DX: O20.0 Threatened abortion (principal); O26.891 Other specified pregnancy related conditions, first trimester; R10.2 Pelvic and perineal pain; R11.0 Nausea; O99.89 Other specified diseases and conditions complicating pregnancy, childbirth and the puerperium; M54.5 Low back pain; Z3A.01 Less than 8 weeks gestation of pregnancy; Z87.42 Personal history of other diseases of the female genital tract
CPT/HCPCS: 99285; 36415; 87210; 84702; 85025; 81001; 87491; 87591; 76817; J1200; J2765; J7030

== ENCOUNTER 2018-09-21 13:10 | Emergency (ER) | payer MEDICAID ==
[2018-09-21] MEDS ORDERED: NORMAL SALINE 1000 ML 1,000 ML IV ONE ×2 (14:07→17:08)
--- NOTE | 2018-09-21 14:09 | ER Document Report ---
ED Medical Screen (RME) - General Chief Complaint: Dizziness Stated Complaint: DIZZY, WEAKNESS, SHAKING Time Seen by Provider: 09/21/18 13:53 Primary Care Provider: SHAKILA BENNETT DO [Primary Care Provider] - Follow up as needed Notes: Patient is a 28-year-old female that presents to the emergency department for chief complaint of pelvic cramping, lightheadedness. 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 ROS: Other than noted above, the 12 point review of systems was reviewed with the patient and were negative, all pertinent findings are included in the HPI. PHYSICAL EXAMINATION: Vital signs reviewed. GENERAL: Well-appearing, well-nourished and in no acute distress. HEAD: Atraumatic, normocephalic. EYES: Pupils equal round extraocular movements intact, conjunctiva are normal. ENT: Nares patent NECK: Normal range of motion CV: Heart rate tachycardic, regular rhythm LUNGS: No respiratory distress Musculoskeletal: Normal range of motion NEUROLOGICAL: Normal speech PSYCH: Normal mood, normal affect. MDM: Patient seen and examined for rapid initial assessment. Vital signs reviewed. A comprehensive ED assessment and evaluation of the patient, analysis of test res ults and completion of the medical decision making process will be conducted by additional ED providers. *Note is created using voice recognition software and may contain spelling, syntax or grammatical errors. TRAVEL OUTSIDE OF THE [place] IN LAST 30 DAYS: No - Related Data Allergies/Adverse Reactions: No Known Allergies Allergy (Verified 09/21/18 13:12) Past Medical History Renal/ Medical History: Reports: Hx Ovarian Cysts. Denies: Hx Peritoneal Dialysis Past Surgical History: Reports: Hx Gynecologic Surgery - ovarian cysts, ectopic - Immunizations Immunizations up to date: Yes Hx Diphtheria, Pertussis, Tetanus Vaccination: Yes Physical Exam - Vital signs Vitals: Temp Pulse Resp BP Pulse Ox 98.0 F 111 H 18 110/70 99 09/21/18 13:37 09/21/18 13:37 09/21/18 13:37 09/21/18 13:37 09/21/18 13:37 Course - Vital Signs Vital signs: Temp Pulse Resp BP Pulse Ox 98.0 F 111 H 18 110/70 99 09/21/18 13:37 09/21/18 13:37 09/21/18 13:37 09/21/18 13:37 09/21/18 13:37 Doctor's Discharge - Discharge Referrals: SHAKILA BENNETT DO [Primary Care Provider] - Follow up as needed
[2018-09-21 15:01] LABS: ABSOLUTE BASOPHILS # (AUTO) 0.1 10^3/uL (0.0-0.2); ABSOLUTE EOSINOPHILS # (AUTO) 0.1 10^3/uL (0.0-0.6); ABSOLUTE LYMPHOCYTES (AUTO) 1.9 10^3/uL (0.5-4.7); ABSOLUTE MONOCYTES (AUTO) 0.7 10^3/uL (0.1-1.4); ABSOLUTE NEUT (AUTO) 5.2 10^3/uL (1.7-8.2); BASOPHILS % (AUTO) 1.2 % (0-2); HEMOGLOBIN 12.5 g/dL (12.0-15.5); LYMPHOCYTES % (AUTO) 23.4 % (13-45); MEAN CORPUSCULAR HEMOGLOBIN 24.4 pg (27.0-33.4); MEAN CORPUSCULAR HGB CONC 32.2 g/dL (32.0-36.0); MEAN CORPUSCULAR VOLUME 76 fl (80-97); MONOCYTES % (AUTO) 8.9 % (3-13); PLATELET COUNT 518 10^3/uL (150-450); RED BLOOD COUNT 5.15 10^6/uL (3.72-5.28); SEGMENTED NEUTROPHILS % (AUTO) 65.5 % (42-78); TOTAL CELLS COUNTED % (AUTO) 100 %
[2018-09-21 16:26] LABS: ANION GAP 10 (5-19); BLOOD UREA NITROGEN 8 mg/dL (7-20); CARBON DIOXIDE 23 mmol/L (22-30); CHLORIDE 103 mmol/L (98-107); GLUCOSE 80 mg/dL (75-110); POTASSIUM 4.7 mmol/L (3.6-5.0); SODIUM 136.2 mmol/L (137-145)
[2018-09-21] MEDS ORDERED: NORMAL SALINE 1000 ML 1,000 ML IV PRN (16:34)
--- NOTE | 2018-09-21 16:35 | ER Document Report ---
ED GI/ <LIVAN MONTOYA - Last Filed: 09/21/18 22:35> - General Mode of Arrival: Ambulatory Information source: Patient TRAVEL OUTSIDE OF THE [place] 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 Pt was evaluated here yesterday in the ER for pelvic pain, vaginal bleeding. Patient states she has had vaginal bleeding since 08/18/2018. Patient did have an increase in her quantitative hCG although had findings worrisome for possible interstitial regnancy on ultrasound. Patient is supposed to follow-up with the NETWORK TECHNOLOGY INSTRUCTOR doctor tomorrow for repeat blood test and repeat office visit. Patient states that she was at court today and was told that she had unpaid fines that she was not aware of. Patient states she started to have dizziness and shaking while at court and they be became concerned and called EMS. Patient states that she feels out of sorts and fatigued at present. Patient denies any change in her pain symptoms or any increase in bleeding. (MICHELLE LO) - Related Data Allergies/Adverse Reactions: No Known Allergies Allergy (Verified 09/22/18 12:13) Past Medical History - General Information source: Patient - Social History Smoking Status: Never Smoker Frequency of alcohol use: None Drug Abuse: None Occupation: None Lives with: Family Family History: Reviewed & Not Pertinent Patient has suicidal ideation: No Patient has homicidal ideation: No - Medical History Medical History: Negative Renal/ Medical History: Reports: Hx Ovarian Cysts. Denies: Hx Peritoneal Dialysis Past Surgical History: Reports: Hx Gynecologic Surgery - ovarian cysts, ectopic - Immunizations Immunizations up to date: Yes Hx Diphtheria, Pertussis, Tetanus Vaccination: Yes <MICHELLE LO - Last Filed: 09/22/18 19:14> Review of Systems - Review of Systems Constitutional: No symptoms reported. denies: Fever EENT: No symptoms reported Cardiovascular: Dizziness, Lightheaded. denies: Chest pain Respiratory: No symptoms reported. denies: Cough, Short of breath Gastrointestinal: Abdominal pain. denies: Nausea, Vomiting Genitourinary: No symptoms reported. denies: Dysuria, Flank pain Female Genitourinary: , Vaginal bleeding. denies: Vaginal discharge Musculoskeletal: No symptoms reported Skin: No symptoms reported Hematologic/Lymphatic: No symptoms reported Neurological/Psychological: No symptoms reported. denies: Headaches <MICHELLE LO - Last Filed: 09/22/18 19:14> Physical Exam - General General appearance: Appears well, Alert In distress: None - HEENT Head: Normocephalic, Atraumatic Eyes: Normal Conjunctiva: Normal Nasal: Normal Mouth/Lips: Normal Mucous membranes: Normal Neck: Normal, Supple. No: Lymphadenopathy - Respiratory Respiratory status: No respiratory distress Chest status: Nontender Breath sounds: Normal. No: Rales, Rhonchi, Stridor, Wheezing Chest palpation: Normal - Cardiovascular Rhythm: Tachycardia Heart sounds: S1 appreciated, S2 appreciated Murmur: No - Abdominal Inspection: Normal Distension: No distension Bowel sounds: Normal Tenderness: Tender - lower pelvic Organomegaly: No organomegaly - Genitourinary External exam: Normal Speculum exam: Cervix closed Vaginal bleeding: Mild - scant brown blood - Back Back: Normal, Nontender. No: CVA tenderness - Extremities General upper extremity: Normal inspection, Normal ROM General lower extremity: Normal inspection, Normal ROM - Neurological Neuro grossly intact: Yes Cognition: Normal [place] Coma Scale Eye Opening: Spontaneous Michelle Coma Scale Verbal: Oriented Michelle Coma Scale Motor: Obeys Commands [place] Coma Scale Total: 15 - Psychological Associated symptoms: Normal affect, Normal mood - Skin Skin Temperature: Warm Skin Moisture: Dry Skin Color: Normal <MICHELLE LO - Last Filed: 09/22/18 19:14> - Vital signs Vitals: Temp Pulse Resp BP Pulse Ox 98.0 F 111 H 18 110/70 99 03/28/19 13:37 09/21/18 13:37 09/21/18 13:37 09/21/18 13:37 09/21/18 13:37 Course - Laboratory Result Diagrams: 09/21/18 14:30 09/21/18 15:35 <LIVAN MONTOYA - Last Filed: 09/21/18 22:35> - Laboratory Result Diagrams: 09/21/18 14:30 09/21/18 15:35 <MICHELLE LO - Last Filed: 09/22/18 19:14> - Re-evaluation Re-evalutation: 09/21/18 22:00 Radiology called, concern for right-sided ectopic with no definite intrauterine identified. I called and spoke with Dr. Robert, she is coming to evaluate the patient. 09/21/18 22:30 Dr. Robert, NETWORK TECHNOLOGY INSTRUCTOR, has evaluated the patient at bedside. She recommends that the patient be discharged home for follow-up in the office at 1:30 PM tomorrow at her appointment that she already has established. She recommends that she be given 15 mg of Toradol now but no additional medications to avoid masking any worsening pain. Patient is to have strict return precautions. (LIVAN MONTOYA) 09/21/18 17:15 Patient continues mildly tachycardic, additional fluid bolus ordered. Call placed to on-call NETWORK TECHNOLOGY INSTRUCTOR and discussed patient's presentation and exam findings. Discussed patient's trending quantitative hCG results. Recommends repeating ultrasound and calling her with the results. 09/21/18 19:17 Patient's tachycardia improved, heart rate currently 100. Patient is still awaiting ultrasound at this time. 09/21/18 21:42 Patient awaiting results of her ultrasound at this time. Bedside report and handoff given to Livan MORIN (MICHELLE LO) - Vital Signs Vital signs: Temp Pulse Resp BP Pulse Ox 98.1 F 111 H 20 135/88 H 100 09/21/18 22:42 09/21/18 13:37 09/21/18 22:01 09/21/18 22:00 09/21/18 22:01 - Laboratory Laboratory results interpreted by me: 09/21/18 09/21/18 14:30 15:35 MCV 76 L MCH 24.4 L RDW 21.0 H Plt Count 518 H Sodium 136.2 L Beta HCG, Quant 3552.90 H 09/21/18 21:42 Labs- Entire Visit 09/21/18 09/21/18 09/21/18 14:30 14:30 15:35 WBC 8.0 RBC 5.15 Hgb 12.5 Hct 39.0 MCV 76 L MCH 24.4 L MCHC 32.2 RDW 21.0 H Plt Count 518 H Seg Neutrophils % 65.5 Lymphocytes % 23.4 Monocytes % 8.9 Eosinophils % 1.0 Basophils % 1.2 Absolute Neutrophils 5.2 Absolute Lymphocytes 1.9 Absolute Monocytes 0.7 Absolute Eosinophils 0.1 Absolute Basophils 0.1 Sodium Cancelled 136.2 L Potassium Cancelled 4.7 Chloride Cancelled 103 Carbon Dioxide Cancelled 23 Anion Gap Cancelled 10 BUN Cancelled 8 Creatinine Cancelled 0.64 Est GFR ( Amer) Cancelled > 60 Est GFR (Non-Af Amer) Cancelled > 60 Glucose Cancelled 80 Calcium Cancelled 10.0 Beta HCG, Quant Cancelled 3552.90 H Total Beta HCG Cancelled POSITIVE (MICHELLE LO) Discharge <LIVAN MONTOYA - Last Filed: 09/21/18 22:35> <MICHELLE LO - Last Filed: 09/22/18 19:14> - Discharge Clinical Impression: Abdominal cramping affecting , Vaginal bleeding, Dizziness Condition: Stable Disposition: HOME, SELF-CARE Additional Instructions: You have been seen by Dr. Yesica nayak. Please follow-up with your appointment at 1:30 PM tomorrow in the office as directed. Return if you worsen in any way including severe worsening pain, vomiting, passing out, heavy bleeding, or any other concerning symptoms. Referrals: TRE FIORE MD [ACTIVE STAFF] - Follow up tomorrow
--- NOTE | 2018-09-21 21:50 | RADIOLOGY REPORT (SQ) ---
EXAM: Ultrasound transvaginal CLINICAL DATA: Vaginal bleeding, pelvic pain, history of ectopic. TECHNICAL DATA: Sonographic imaging of the pelvis was performed endovaginally on 09/21/2018 at 7:52 PM FINDINGS: Comparison is made with the previous OB ultrasound performed on 09/15/2018 The uterus is normal in size and configuration and measures: 10.4 x 6.2 x 5.2 cm. The endometrial echo complex measures 1.9 cm in diameter is thickened. No definite intrauterine gestational sac is appreciated. There is no evidence of a normal intrauterine gestational sac. There is a vague area of decreased echogenicity within the uterine fundus. There is no evidence of a yolk sac at this time. There is a cystic area adjacent to the right ovary with surrounding vascularity which may represent an an ectopic . The overall size of this cystic structure measures 0.58 cm corresponding to a gestational age of five weeks two days. No yolk sac or pole is appreciated. The right ovary is grossly normal in size, shape and echogenicity and measures: 3.9 x 2.7 x 2.5 cm. There is a area of decreased echogenicity arising from the right ovary which may represent a corpus luteum cyst. This measures 1.7 x 2.1 x 1.4 cm. There is normal color Doppler flow to the right ovary. The left ovary is grossly normal in size, shape and echogenicity and measures: 3.7 x 1.4 x 1.8 cm. There is normal color Doppler flow to the left ovary. There are no left adnexal mass lesions.. There is no free fluid in the pelvis. The cervical length measures 2.8 cm. IMPRESSION: 1. No definite intrauterine gestational sac identified. The prior study from 09/20/2018 was not available for comparison at this time. There is a vague focal area of decreased echogenicity in the uterine fundus. 2. Cystic area adjacent to the right ovary with surrounding vascularity which may represent an ectopic . The overall size of this cystic structure which might represent a gestational sac corresponds to a five week two day . No yolk sac or pole is identified. Potentially, this could represent a corpus luteal cyst. 3. There is no free fluid in the pelvis.
[2018-09-21] MEDS ORDERED: KETOROLAC TROMETHAMINE INJ/PF 30 MG/1 ML SDV IV ONE (22:23)
--- NOTE | 2018-09-21 22:35 | PDOC CONSULTATION ---
Consultation Consult Date: 09/21/18 Attending physician:: MORGAN YODER Consult reason:: Possible ectopic History of Present Illness Admission Date/PCP: SHAKILA BENNETT DO Patient complains of: Dizziness and cramping History of Present Illness: ELIUD DE LEON is a 28 year old with an intrauterine at approximately 5 weeks, presented to [facility] ED last night complaining of vaginal bleeding and cramping. Patient knew that she was prior to her admission to the hospital. She subsequently underwent a pelvic ultrasound which showed a possible interstitial ectopic , on the right. Patient was seen by Dr. Carly Pelletier, who felt comfortable sending her home and arranging follow-up care in the office. Patient presented to the ED again today complaining of dizziness, back pain and cramping. Today, her quantitative hCG was approximately 2000 today, it is roughly 3000. Patient underwent another ultrasound today which now does not show a definite intrauterine and a possible right ectopic versus corpus luteal cyst. Past Medical History LMP: 08/11/2018 Menses: Regular Gynecological Infection: No 1 Delivery: Spontaneous Vaginal Delivery Social History Lives with: Family Smoking Status: Never Smoker Frequency of Alcohol Use: Rare Hx Recreational Drug Use: No Hx Prescription Drug Abuse: No Family History Family History: Reviewed & Not Pertinent Parental Family History Reviewed: No Children Family History Reviewed: NA Sibling(s) Family History Reviewed.: NA Medication/Allergy Home Medications: Morphine Sulfate [Morphine Ir 15 mg Tablet] 15 mg PO Q4HP PRN #12 tablet 12/24/17 Ondansetron HCl [Zofran 4 mg Tablet] 1 - 2 tab PO Q6 PRN #15 tablet 12/24/17 Metronidazole [Flagyl 500 mg Tablet] 500 mg PO BID #14 tablet 01/14/18 Amoxicillin Trihydrate [Amoxil 875 mg Tablet] 1 tab PO BID #20 tablet 03/01/18 Fluticasone Propionate [Flonase Nasal [place] 50 Mcg/[place] 16 gm] 1 spray NASL Q12 #1 inhaler 03/01/18 Pseudoephedrine HCl [Sudafed 12 Hour] 120 mg PO Q12 PRN #14 tablet.er 03/01/18 Allergies/Adverse Reactions: No Known Allergies Allergy (Verified 09/21/18 13:12) Physical Exam - Physical Exam Vital Signs: Temp Pulse Resp BP Pulse Ox 98.8 F 111 H 16 133/84 H 100 09/21/18 21:00 09/21/18 13:37 09/21/18 21:01 09/21/18 21:00 09/21/18 21:01 Intake & Output 09/20/18 09/21/18 09/22/18 06:59 06:59 06:59 Intake Total 1999 Balance 1999 Weight 54.885 kg General appearance: PRESENT: no acute distress Cardiovascular exam: PRESENT: RRR GI/Abdominal exam: PRESENT: normal bowel sounds, soft Extremities exam: ABSENT: calf tenderness, clubbing, full ROM, joint swelling, pedal edema, tenderness, +1 edema, +2 edema, other - Gynecological Exam Vagina: other - Spotting Result Laboratory Results: 09/21/18 14:30 09/21/18 15:35 09/21/18 09/21/18 09/21/18 14:30 14:30 15:35 WBC 8.0 RBC 5.15 Hgb 12.5 Hct 39.0 MCV 76 L MCH 24.4 L MCHC 32.2 RDW 21.0 H Plt Count 518 H Seg Neutrophils % 65.5 Lymphocytes % 23.4 Monocytes % 8.9 Eosinophils % 1.0 Basophils % 1.2 Absolute Neutrophils 5.2 Absolute Lymphocytes 1.9 Absolute Monocytes 0.7 Absolute Eosinophils 0.1 Absolute Basophils 0.1 Sodium Cancelled 136.2 L Potassium Cancelled 4.7 Chloride Cancelled 103 Carbon Dioxide Cancelled 23 Anion Gap Cancelled 10 BUN Cancelled 8 Creatinine Cancelled 0.64 Est GFR ( Amer) Cancelled > 60 Est GFR (Non-Af Amer) Cancelled > 60 Glucose Cancelled 80 Calcium Cancelled 10.0 Impressions: Obstetrics Ultrasound 09/21/18 17:14 IMPRESSION: 1. No definite intrauterine gestational sac identified. The prior study from 09/20/2018 was not available for comparison at this time. There is a vague focal area of decreased echogenicity in the uterine fundus. 2. Cystic area adjacent to the right ovary with surrounding vascularity which may represent an ectopic . The overall size of this cystic structure which might represent a gestational sac corresponds to a five week two day . No yolk sac or pole is identified. Potentially, this could represent a corpus luteal cyst. 3. There is no free fluid in the pelvis. Assessment & Plan - Time Time Spent: 30 to 50 Minutes Critical Time spent with patient: Less than 15 minutes - Plan Summary Plan Summary: 1. Discharge home 2. Follow-up in the office tomorrow as scheduled 3. Toradol 15 mg IV x1 4. Ectopic precautions given 5. Record release for copy of op report from ectopic
[2018-09-21 22:42] VITALS: BP 135/88
== END 2018-09-21 22:44 | disposition home or self-care (01) ==
LOC: ER 13:10
DX: O46.91 Antepartum hemorrhage, unspecified, first trimester (principal); O26.891 Other specified pregnancy related conditions, first trimester; R10.2 Pelvic and perineal pain; R42 Dizziness and giddiness; R53.1 Weakness; R25.1 Tremor, unspecified; R53.83 Other fatigue; R10.9 Unspecified abdominal pain; Z3A.01 Less than 8 weeks gestation of pregnancy
CPT/HCPCS: 99284; 96361; 96374; 36415; 84702; 85025; 80048; 76817; J1885; J7030

== ENCOUNTER 2018-09-22 11:48 | Observation (INO) | payer MEDICAID ==
[2018-09-22 12:29] LABS: ABSOLUTE BASOPHILS # (AUTO) 0.1 10^3/uL (0.0-0.2); ABSOLUTE EOSINOPHILS # (AUTO) 0.1 10^3/uL (0.0-0.6); ABSOLUTE LYMPHOCYTES (AUTO) 1.1 10^3/uL (0.5-4.7); ABSOLUTE MONOCYTES (AUTO) 0.6 10^3/uL (0.1-1.4); ABSOLUTE NEUT (AUTO) 4.4 10^3/uL (1.7-8.2); BASOPHILS % (AUTO) 1.1 % (0-2); EOSINOPHILS % (AUTO) 1.5 % (0-6); HEMATOCRIT 30.7 % (36.0-47.0); LYMPHOCYTES % (AUTO) 17.1 % (13-45); MEAN CORPUSCULAR HEMOGLOBIN 24.9 pg (27.0-33.4); MEAN CORPUSCULAR HGB CONC 32.4 g/dL (32.0-36.0); MEAN CORPUSCULAR VOLUME 77 fl (80-97); MONOCYTES % (AUTO) 9.9 % (3-13); PLATELET COUNT 414 10^3/uL (150-450); RED CELL DISTRIBUTION WIDTH 21.3 % (11.5-14.0); SEGMENTED NEUTROPHILS % (AUTO) 70.4 % (42-78); TOTAL CELLS COUNTED % (AUTO) 100 %; WHITE BLOOD COUNT 6.3 10^3/uL (4.0-10.5)
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
[2018-09-22] MEDS ORDERED: FENTANYL CITRATE INJ/PF 100 MCG/2 ML AMPUL IV ONE ×3 (13:34→17:43)
--- NOTE | 2018-09-22 13:37 | RADIOLOGY REPORT (SQ) ---
EXAM DESCRIPTION: U/S OB TRANSVAGINAL W/O DOP COMPLETED DATE/TIME: 09/22/2018 1:10 pm REASON FOR STUDY: ?interstitial preg, increased pain COMPARISON: 09/21/2018, 09/20/2018, 09/15/2018 TECHNIQUE: Transvaginal static and realtime grayscale images acquired of the pelvis. Additional arianna cted spectral and color Doppler images recorded. All images stored on PACs. [facility] [place]: 5 weeks, 0 days LIMITATIONS: None. FINDINGS: FETUS: There is a candidate intrauterine gestational sac measuring 0.9 cm in the uterine fundus. No pole or heart tones identified. ULTRASOUND EGA: 5 weeks, 5 days ULTRASOUND ADILIA: 05/20/2019 CRL: Nonvisualized. FHR: Not visualized. UTERUS: No masses. No anomalies. CERVICAL LENGTH: 4.0 cm Closed. RIGHT ADNEXA: Normal ovary with normal vascular flow. Hypoechoic area with surrounding vascularity m easuring 2.6 x 1.8 x 1.7 cm, likely a corpus luteum in the right ovary. No adnexal free fluid. There is a 0.8 cm hypoechoic lesion in the right adnexa, as seen on prior examinations. LEFT ADNEXA: Normal ovary with normal vascular flow. No adnexal free fluid. No adnexal masses. FREE FLUID: None. OTHER: No other significant finding. IMPRESSION: 1. Candidate intrauterine gestational sac at sonographic gestational age of 5 weeks, 5 days. There is no pole or heart rate identified. Early intrauterine gestation of uncert ain viability. Recommend follow-up ultrasound in in 7-14 days to ensure continued development and vi ability. 2. Redemonstrated hypoechoic lesion in the right adnexa measuring 0.8 cm, of uncertain significance. Heterotopic ectopic is not excluded. Attention on follow-up as indicated by clinical sig ns and symptoms. Trimester of : First - 0 to 13 weeks. TECHNICAL DOCUMENTATION: JOB ID: [id number] Float: [place]- All Rights Reserved rev Reading location - IP/workstation name: [email or web address]
[2018-09-22] MEDS ORDERED: NORMAL SALINE 1000 ML 1,000 ML IV ONE (14:17)
[2018-09-22] MEDS ORDERED: ACETAMINOPHEN 325 MG TABLET PO PRN (17:34)
--- NOTE | 2018-09-22 17:56 | PDOC H&P ---
History of Present Illness Admission Date/PCP: SHAKILA BENNETT DO Patient complains of: Pelvic pain and bleeding History of Present Illness: ELIUD DE LEON is a 28 year old female She presents with complaints of pelvic pain and bleeding. She has been to the ER several times. Her blood type is AB+ her quantitative hCG has steadily increased on September 15 was 265 on September 20 it was 2431, on September 21 was 3552 and on September 22 it was 4134. Her ultrasound is somewhat confusing as it shows a possible gestational sac in the uterus. Report reads there is no pole or heart rate identified early intrauterine gestation of uncertain viability it also mentions a hypoechoic lesion in the right adnexa of uncertain significance and that heterotopic ectopic cannot be excluded. Past Medical History LMP: 5 weeks Gynecological Infection: No Gynecological History Note: She reports [employer] surgery for ovarian cyst and a previous ectopic Obstetrical History: none - Her OB history is positive Past Surgical History Past Surgical History: She reports surgery for ovarian cysts and ectopic . Social History Smoking Status: Never Smoker Frequency of Alcohol Use: Rare Hx Recreational Drug Use: No Hx Prescription Drug Abuse: No Family History Family History: Reviewed & Not Pertinent Parental Family History Reviewed: Yes Children Family History Reviewed: Yes Sibling(s) Family History Reviewed.: Yes Medication/Allergy Home Medications: Morphine Sulfate [Morphine Ir 15 mg Tablet] 15 mg PO Q4HP PRN #12 tablet 12/24/17 Ondansetron HCl [Zofran 4 mg Tablet] 1 - 2 tab PO Q6 PRN #15 tablet 12/24/17 Metronidazole [Flagyl 500 mg Tablet] 500 mg PO BID #14 tablet 01/14/18 Amoxicillin Trihydrate [Amoxil 875 mg Tablet] 1 tab PO BID #20 tablet 03/01/18 Fluticasone Propionate [Flonase Nasal [place] 50 Mcg/[place] 16 gm] 1 spray NASL Q12 #1 inhaler 03/01/18 Pseudoephedrine HCl [Sudafed 12 Hour] 120 mg PO Q12 PRN #14 tablet.er 03/01/18 Allergies/Adverse Reactions: No Known Allergies Allergy (Verified 09/22/18 12:13) Physical Exam - Physical Exam Vital Signs: Temp Pulse Resp BP Pulse Ox 98.3 F 93 18 130/65 H 100 09/22/18 12:06 09/22/18 12:06 09/22/18 12:06 09/22/18 12:06 09/22/18 14:31 Intake & Output 09/21/18 09/22/18 09/23/18 06:59 06:59 06:59 Intake Total 1000 Balance 1000 Weight 54.431 kg General appearance: PRESENT: no acute distress, well-developed, well-nourished Head exam: PRESENT: atraumatic, normocephalic Respiratory exam: PRESENT: other - Lungs are clear to auscultation Cardiovascular exam: PRESENT: RRR. ABSENT: diastolic murmur, rubs, systolic murmur Pulses: PRESENT: normal dorsalis pedis pul, +2 pedal pulses bilateral GI/Abdominal exam: PRESENT: other - She reports tenderness in the low abdomen. She has positive bowel sounds she has no guarding or rebound. Extremities exam: PRESENT: full ROM. ABSENT: calf tenderness, clubbing, pedal edema Neurological exam: PRESENT: alert, awake, oriented to person, oriented to place, oriented to time, oriented to situation, CN II-XII grossly intact. ABSENT: motor sensory deficit Result Laboratory Results: 09/22/18 12:03 09/22/18 09/22/18 12:03 12:03 WBC 6.3 RBC 4.00 Hgb 10.0 L D Hct 30.7 L MCV 77 L MCH 24.9 L MCHC 32.4 RDW 21.3 H Plt Count 414 Seg Neutrophils % 70.4 Lymphocytes % 17.1 Monocytes % 9.9 Eosinophils % 1.5 Basophils % 1.1 Absolute Neutrophils 4.4 Absolute Lymphocytes 1.1 Absolute Monocytes 0.6 Absolute Eosinophils 0.1 Absolute Basophils 0.1 Blood Type AB POSITIVE Antibody Screen NEGATIVE Impressions: Obstetrics Ultrasound 09/22/18 12:13 IMPRESSION: 1. Candidate intrauterine gestational sac at sonographic gestational age of 5 weeks, 5 days. There is no pole or heart rate identified. Early intrauterine gestation of uncertain viability. Recommend follow-up ultrasound in in 7-14 days to ensure continued development and viability. 2. Redemonstrated hypoechoic lesion in the right adnexa measuring 0.8 cm, of uncertain significance. Heterotopic ectopic is not excluded. Attention on follow-up as indicated by clinical signs and symptoms. Trimester of : First - 0 to 13 weeks. Assessment & Plan - Diagnosis (1) Threatened miscarriage in early Is this a current diagnosis for this admission?: Yes Plan: We have discussed that has not evident if this will be a viable . She feels that she is in too much pain to go home and therefore we are admitting her for observation. We will continue serial quant hCG and ultrasound.
[2018-09-22] MEDS ORDERED: OXYCODONE-ACETAMINOPHEN 5-325 MG TABLET PO PRN (21:31)
[2018-09-23] MEDS: OXYCODONE-ACETAMINOPHEN 5-325 MG TABLET PO PRN ×3 (00:48→18:46)
[2018-09-23 08:32] LABS: ABSOLUTE BASOPHILS # (AUTO) 0.1 10^3/uL (0.0-0.2); ABSOLUTE EOSINOPHILS # (AUTO) 0.2 10^3/uL (0.0-0.6); ABSOLUTE MONOCYTES (AUTO) 0.5 10^3/uL (0.1-1.4); BASOPHILS % (AUTO) 1.1 % (0-2); EOSINOPHILS % (AUTO) 3.3 % (0-6); HEMATOCRIT 32.2 % (36.0-47.0); HEMOGLOBIN 10.6 g/dL (12.0-15.5); LYMPHOCYTES % (AUTO) 34.7 % (13-45); MEAN CORPUSCULAR HGB CONC 32.8 g/dL (32.0-36.0); MEAN CORPUSCULAR VOLUME 76 fl (80-97); MONOCYTES % (AUTO) 9.3 % (3-13); PLATELET COUNT 423 10^3/uL (150-450); RED BLOOD COUNT 4.22 10^6/uL (3.72-5.28); RED CELL DISTRIBUTION WIDTH 21.1 % (11.5-14.0); SEGMENTED NEUTROPHILS % (AUTO) 51.6 % (42-78); TOTAL CELLS COUNTED % (AUTO) 100 %; WHITE BLOOD COUNT 5.9 10^3/uL (4.0-10.5)
--- NOTE | 2018-09-23 08:50 | PDOC PROGRESS REPORT ---
Subjective Progress Note for:: 09/23/18 Subjective:: No complaints except continued RLQ improved with Percocet. No n/v. Reason For Visit: POSSIBLE ECTOPIC Physical Exam - Physical Exam Vital Signs: Temp Pulse Resp BP Pulse Ox 98.2 F 83 18 120/63 100 09/23/18 05:28 09/23/18 05:28 09/23/18 05:28 09/23/18 05:28 09/23/18 05:28 Intake & Output 09/22/18 09/23/18 09/24/18 06:59 06:59 06:59 Intake Total 1118 Balance 1118 Weight 56.9 kg General appearance: PRESENT: no acute distress, cooperative Head exam: PRESENT: atraumatic, normocephalic Respiratory exam: PRESENT: clear to auscultation hazel Cardiovascular exam: PRESENT: RRR GI/Abdominal exam: PRESENT: normal bowel sounds, soft, tenderness - mild, RLQ Skin exam: PRESENT: dry, warm Result Laboratory Results: 09/23/18 08:15 09/22/18 09/22/18 09/23/18 12:03 12:03 08:15 WBC 6.3 5.9 RBC 4.00 4.22 Hgb 10.0 L D 10.6 L Hct 30.7 L 32.2 L MCV 77 L 76 L MCH 24.9 L 25.0 L MCHC 32.4 32.8 RDW 21.3 H 21.1 H Plt Count 414 423 Seg Neutrophils % 70.4 51.6 Lymphocytes % 17.1 34.7 Monocytes % 9.9 9.3 Eosinophils % 1.5 3.3 Basophils % 1.1 1.1 Absolute Neutrophils 4.4 3.0 Absolute Lymphocytes 1.1 2.0 Absolute Monocytes 0.6 0.5 Absolute Eosinophils 0.1 0.2 Absolute Basophils 0.1 0.1 Blood Type AB POSITIVE Antibody Screen NEGATIVE Impressions: Obstetrics Ultrasound 09/22/18 12:13 IMPRESSION: 1. Candidate intrauterine gestational sac at sonographic gestational age of 5 weeks, 5 days. There is no pole or heart rate identified. Early intrauterine gestation of uncertain viability. Recommend follow-up ultrasound in in 7-14 days to ensure continued development and viability. 2. Redemonstrated hypoechoic lesion in the right adnexa measuring 0.8 cm, of uncertain significance. Heterotopic ectopic is not excluded. Attention on follow-up as indicated by clinical signs and symptoms. Trimester of : First - 0 to 13 weeks. Assessment & Plan - Diagnosis (1) Abdominal cramping affecting Is this a current diagnosis for this admission?: Yes Plan: Quant drawn today, pending. Uls ordered for tomorrow. Continue to monitor pain. Continue analgesics prn.
--- NOTE | 2018-09-24 08:59 | RADIOLOGY REPORT (SQ) ---
EXAM DESCRIPTION: U/S NON OB PEL TV W/DOPPLER COMPLETED DATE/TIME: 09/24/2018 8:10 am REASON FOR STUDY: evaluate for ectopic COMPARISON: OB ultrasound 09/22/2018, 09/21/2018, 09/20/2018, 09/15/2018 TECHNIQUE: Endovaginal static and realtime grayscale images acquired of the pelvis. Additional selec victor hugo spectral and color Doppler images recorded. All images stored on PACs. CLINICAL AGE: Last menses 08/18/2018, estimated age 5 weeks 2 days [facility]09/22/2018, beta HCG 4,134 09/21/2018, beta HCG 3,552 09/20/2018, beta HCG 2,431 09/15/2018, beta HCG 265 LIMITATIONS: None. FINDINGS: UTERUS: No visualized intrauterine . Uterus is 9 x 5 x 6 cm in size. Endometria l stripe 2 to 3 cm in thickness. Findings along the rightward uterine fundus described 09/20/2018 are not identified on today's follow-up imaging. RIGHT ADNEXA: Right ovary is 4 x 2.5 x 3.1 cm in size with a 1.8 x 1.3 cm ectopic containin g a yolk sac. No embryo identified. Findings called to Dr. Rodriguez as a critical result 0845 hours . No adnexal free fluid. LEFT ADNEXA: Normal ovary with normal vascular flow. Left ovary 2.9 x 1.7 x 1.6 cm in size. No adnexal free fluid. No adnexal masses. FREE FLUID: None. OTHER: No other significant finding. IMPRESSION: Right ovarian ectopic containing a yolk sac. Overall diameter of the gestatio nal sac and surrounding trophoblastic tissue is 1.8 x 1.3 cm. No right adnexal or free cul-de-sac fl uid. COMMENT: Pertinent findings on the imaging study reported as a CRITICAL RESULT to MARCELINO RODRIGUEZ MD a t08:45 on 09/24/2018. Category of Critical Result: Right ovarian ectopic TECHNICAL DOCUMENTATION: JOB ID: [id number] [employer]- All Rights Reserved Reading location - IP/workstation name: [facility]
[2018-09-24] MEDS ORDERED: MIDAZOLAM 2 MG/2 ML INJ ONE (09:25)
[2018-09-24] MEDS ORDERED: FENTANYL CITRATE INJ/PF 100 MCG/2 ML AMPUL ONE (09:25)
[2018-09-24] MEDS ORDERED: ACETAMINOPHEN 1,000 MG/100 ML RTUPB IV ONE (09:26)
[2018-09-24] MEDS ORDERED: PROPOFOL INJ 200 MG/20 ML VIAL IV ONE (09:26)
[2018-09-24] MEDS ORDERED: HYDROMORPHONE HCL INJ/PF 2 MG/ML AMPULE ONE ×2 (09:26→20:20)
[2018-09-24] MEDS ORDERED: SUCCINYLCHOLINE CHLORIDE INJ 200 MG/10 ML VIAL ONE (10:18)
[2018-09-24] MEDS ORDERED: LIDOCAINE 2% INJ-PF (20 MG/ML) 2 ML AMPUL ONE (10:18)
[2018-09-24] MEDS ORDERED: ONDANSETRON HCL INJ/PF 4 MG/2 ML SDV ONE (10:18)
[2018-09-24] MEDS ORDERED: DEXAMETHASONE SOD PHOSPHATE INJ 4 MG/1 ML VIAL ONE (10:18)
[2018-09-24] MEDS ORDERED: METOCLOPRAMIDE HCL INJ/PF 10 MG/2 ML SDV IV ONE (11:15)
[2018-09-24] MEDS ORDERED: FAMOTIDINE INJ/PF 20 MG/2 ML SDV IV ONE (11:15)
[2018-09-24] MEDS ORDERED: DIPHENHYDRAMINE HCL 50 MG/ML VIAL IV PRN (17:15)
[2018-09-24] MEDS ORDERED: PROMETHAZINE HCL INJ 25 MG/1 ML VIAL IV PRN (17:15)
[2018-09-24] MEDS ORDERED: MEPERIDINE HCL/PF INJ 25 MG/1 ML DISP.SYRIN IV PRN (17:15)
[2018-09-24] MEDS ORDERED: FENTANYL CITRATE INJ/PF 100 MCG/2 ML AMPUL IV PRN ×3 (17:15)
[2018-09-24] MEDS ORDERED: RINGERS SOLUTION,LACTATED 1,000 ML IV PRN (17:44)
[2018-09-24] MEDS ORDERED: OXYCODONE-ACETAMINOPHEN 5-325 MG TABLET PO PRN ×2 (17:44)
[2018-09-24] MEDS ORDERED: IBUPROFEN 800 MG TABLET PO PRN (17:44)
[2018-09-24] MEDS ORDERED: KETOROLAC TROMETHAMINE INJ/PF 30 MG/1 ML SDV IV PRN (17:44)
--- NOTE | 2018-09-24 17:50 | Operative Report ---
Operative Report DATE OF SURGERY: 09/24/18 PREOPERATIVE DIAGNOSIS: Right ectopic POSTOPERATIVE DIAGNOSIS: Same OPERATION: Laparoscopy with partial right salpingectomy removing the ectopic SURGEON: MARCELINO JOSEPH ANESTHESIA: GA TISSUE REMOVED OR ALTERED: Right fallopian tube COMPLICATIONS: None ESTIMATED BLOOD LOSS: Minimal INTRAOPERATIVE FINDINGS: Right sided ectopic approximately midportion of the fallopian tube PROCEDURE: Patient has an ectopic in the right tube based on the ultrasound today. We discussed options of methotrexate versus laparoscopy. She has been having pain for a while now and wishes to just proceed with the laparoscopy. Patient was taken the OR and placed in supine position. General anesthesia was induced. She is placed in dorsolithotomy position using Darrius stirrups. Her abdomen perineum and and vagina were prepared and draped in sterile fashion. An incision was made at the umbilicus and the natural umbilical defect was identified and dilated with Jessica clamp. This allowed the placement of a blunt port. Laparoscopy confirmed appropriate placement. A suprapubic port and a left lateral port were placed under laparoscopic visualization. Next the ectopic was grasped and elevated out of the pelvis the LigaSure device was used to cauterize and cut the fallopian tube. An endoscopic bag was placed through the umbilical trocar and the portion of the fallopian tube was placed into the bag and removed through the umbilicus. Hemostasis was good. The pelvis was irrigated and suctioned free of fluid. Of note there was blood in the posterior cul-de-sac as well as the anterior cul-de-sac. This was prior to removal of the fallopian tube. Next the gas was allowed to escape from the abdomen. The ports were removed under laparoscopic visualization. The umbilical port was removed with the scope in unison. The fascia at the umbilicus was closed with a 2-0 Vicryl stitch and skin closed with a 4-0 undyed Vicryl stitch. We did not catheter during the procedure as she had voided just prior.
--- NOTE | 2018-09-24 17:55 | PDOC DISCHARGE SUMMARY ---
General - Admit/Disc Date/PCP Admission Date/Primary Care Provider: 09/22/18 17:29 SHAKILA BENNETT, DO Discharge Date: 09/24/18 - Discharge Diagnosis (1) Threatened miscarriage in early Is this a current diagnosis for this admission?: No (2) Ectopic , tubal Is this a current diagnosis for this admission?: Yes - Additional Information Resuscitation Status: Full Code Home Medications: Vit/Dha [ Multi + Dha Capsule] 1 cap PO DAILY 09/22/18 History of Present Illness Patient complains of: Abdominal pain History of Present Illness: The patient was admitted on Tuesday with abdominal pain and positive test. At that time the ultrasounds were very unclear. There appeared to be possibly intrauterine sac as well as possibly an ectopic possibly heterotopic . If you review radiology reports they listed 3 possibilities. For this reason she was admitted and watched until the situation became more obvious. Her hCG hitesh appropriately and on ultrasound this morning there are no longer appears to be an intrauterine . There is definitely an ectopic on the right. After discussing methotrexate versus laparoscopy she wishes to proceed with surgery and have that portion of her tube removed because she reports this is her second ectopic in that tube. She is also been in pain for a while and does not wish to undergo the methotrexate. We went to surgery a nd remove the ectopic. Please see the operative report. After where she was just discharged home with follow-up in 1-2 weeks. Hospital Course Hospital Course: The hospital course is listed in the history of present illness please refer to that. Physical Exam - Physical Exam Vital Signs: Temp Pulse Resp BP Pulse Ox 98.4 F 109 H 16 114/67 100 09/24/18 15:28 09/24/18 15:28 09/24/18 15:28 09/24/18 15:28 09/24/18 15:28 Intake & Output 09/23/18 09/24/18 09/25/18 06:59 06:59 06:59 Intake Total 1118 Output Total 1 Balance 1118 -1 Weight 56.9 kg General appearance: PRESENT: no acute distress, well-developed, well-nourished Head exam: PRESENT: atraumatic, normocephalic GI/Abdominal exam: PRESENT: normal bowel sounds, soft, other - Expected postoperative tenderness. ABSENT: distended, guarding, mass, organolmegaly, rebound, tenderness Result Laboratory Results: 09/23/18 08:15 Impressions: Obstetrics Ultrasound 09/22/18 12:13 IMPRESSION: 1. Candidate intrauterine gestational sac at sonographic gestatio nal age of 5 weeks, 5 days. There is no pole or heart rate identified. Early intrauterine gestation of uncertain viability. Recommend follow-up ultrasound in in 7-14 days to ensure continued development and viability. 2. Redemonstrated hypoechoic lesion in the right adnexa measuring 0.8 cm, of uncertain significance. Heterotopic ectopic is not excluded. Attention on follow-up as indicated by clinical signs and symptoms. Trimester of : First - 0 to 13 weeks. Transvaginal US 09/24/18 07:00 IMPRESSION: Right ovarian ectopic containing a yolk sac. Overall diameter of the gestational sac and surrounding trophoblastic tissue is 1.8 x 1.3 cm. No right adnexal or free cul-de-sac fluid. Patient is a right ectopic and this is been removed via laparoscopy. Plan Discharge Plan: Home to rest follow-up in 1-2 weeks
[2018-09-24] MEDS ORDERED: KETOROLAC TROMETHAMINE INJ/PF 30 MG/1 ML SDV ONE (18:10)
[2018-09-24] MEDS: OXYCODONE-ACETAMINOPHEN 5-325 MG TABLET PO PRN (19:43)
[2018-09-24] MEDS ORDERED: HYDROMORPHONE HCL INJ/PF 2 MG/ML AMPULE IV ONE (20:30)
[2018-09-24] MEDS: HYDROMORPHONE HCL INJ/PF 2 MG/ML AMPULE IV PRN (23:30)
[2018-09-25] MEDS: HYDROMORPHONE HCL INJ/PF 2 MG/ML AMPULE IV PRN ×2 (02:38→05:43)
[2018-09-25 10:26] VITALS: BP 108/64
== END 2018-09-25 10:50 | disposition home or self-care (01) ==
LOC: EEVIPCON 11:48 → ER 11:48 → EH 17:29 → INTOOBSV 17:29 → 2N 22:33
PROVIDERS: ADMIT Obstetrics & Gynecology; ATTEND Obstetrics & Gynecology
PROC: 0UB54ZZ Excision of Right Fallopian Tube, Percutaneous Endoscopic Approach (ICD-10-PCS; 2018-09-24)
PROC: 10T24ZZ Resection of Products of Conception, Ectopic, Percutaneous Endoscopic Approach (ICD-10-PCS; principal; 2018-09-24 10:30)
DX: O00.101 Right tubal pregnancy without intrauterine pregnancy (principal); O09.11 Supervision of pregnancy with history of ectopic pregnancy, first trimester; Z3A.01 Less than 8 weeks gestation of pregnancy; Z87.42 Personal history of other diseases of the female genital tract; Z79.899 Other long term (current) drug therapy
CPT/HCPCS: 96376; 99285; 96361; 96374; 86900; 86901; 36415 ×3; 86850; 84702 ×3; 85025 ×2; 88305 ×2; 76817; 76830; 93976; 59151; J2250; J1100; J3010 ×2; J1885; J2765; J1170 ×2; J0330; J2405; J7030; J7120; J2704; S0028; J0131; J3490; 840

== ENCOUNTER 2018-09-28 05:32 | Emergency (ER) | payer MEDICAID ==
[2018-09-28] MEDS ORDERED: ONDANSETRON HCL INJ/PF 4 MG/2 ML SDV IV ONE (06:47)
[2018-09-28 06:55] LABS: ABSOLUTE BASOPHILS # (AUTO) 0.1 10^3/uL (0.0-0.2); ABSOLUTE EOSINOPHILS # (AUTO) 0.2 10^3/uL (0.0-0.6); ABSOLUTE LYMPHOCYTES (AUTO) 1.8 10^3/uL (0.5-4.7); ABSOLUTE MONOCYTES (AUTO) 0.7 10^3/uL (0.1-1.4); ABSOLUTE NEUT (AUTO) 8.2 10^3/uL (1.7-8.2); BASOPHILS % (AUTO) 0.5 % (0-2); HEMATOCRIT 32.5 % (36.0-47.0); HEMOGLOBIN 10.8 g/dL (12.0-15.5); MEAN CORPUSCULAR HEMOGLOBIN 25.7 pg (27.0-33.4); MEAN CORPUSCULAR HGB CONC 33.2 g/dL (32.0-36.0); MEAN CORPUSCULAR VOLUME 78 fl (80-97); MONOCYTES % (AUTO) 6.6 % (3-13); PLATELET COUNT 438 10^3/uL (150-450); RED BLOOD COUNT 4.19 10^6/uL (3.72-5.28); RED CELL DISTRIBUTION WIDTH 23.2 % (11.5-14.0); SEGMENTED NEUTROPHILS % (AUTO) 74.9 % (42-78); TOTAL CELLS COUNTED % (AUTO) 100 %
[2018-09-28] MEDS ORDERED: FENTANYL CITRATE INJ/PF 100 MCG/2 ML AMPUL IV ONE (06:59)
[2018-09-28] MEDS ORDERED: NORMAL SALINE 1000 ML 1,000 ML IV ONE (07:00)
--- NOTE | 2018-09-28 07:02 | ER Document Report ---
ED General - General Chief Complaint: Post Surgical Pain Stated Complaint: STOMACH PAIN Time Seen by Provider: 09/28/18 06:51 Primary Care Provider: SHAKILA BENNETT DO [Primary Care Provider] - Follow up in 3-5 days Notes: Patient is a 28-year-old female that presents to the emergency department for chief complaint of abdominal pain. Patient had laparoscopic surgery for ectopic on Tuesday, and states that since yesterday morning she is been having significant lower and pelvic abdominal pain, she states that her abdomen is more swollen as well, and is concerned about this, she describes the pain as coming and going and can be severe, and feels like contractions at times. She currently rates her pain as a 10 out of 10, describes as severe and constant and aching and stabbing at all the same time. She denies noting fevers, chills, dysuria, hematuria. She reports that she did have a bowel movement on Tuesday, she is had associated vomiting with this as well. Past Medical History: Denies chronic medical conditions Past Surgical History: Laparoscopic surgery for ectopic Social History: Denies current tobacco, alcohol or drug use. Family History: Reviewed and noncontributory for presenting illness Allergies: Reviewed, see documented allergy list. REVIEW OF SYSTEMS: Other than noted above, the 12 point review of systems was reviewed with the patient and were negative, all pertinent findings are included in the HPI. PHYSICAL EXAMINATION: Vital signs reviewed, nursing noted reviewed. GENERAL: Patient appears uncomfortable, but in no immediate or acute distress HEAD: Atraumatic, normocephalic. EYES: Eyes appear normal, extraocular movements intact, sclera anicteric, con junctiva are normal. ENT: nares patent, oropharynx clear without exudates. Moist mucous membranes. NECK: Normal range of motion, supple without lymphadenopathy LUNGS: Breath sounds clear to auscultation bilaterally and equal. No wheezes rales or rhonchi. HEART: Regular rate and rhythm without murmurs ABDOMEN: Soft, with mild lower abdominal distention, surgical incisional wounds appear to be healing well, there is tenderness to palpation in the lower abdomen bilaterally, normoactive bowel sounds. No rebound, guarding, or rigidity. No masses appreciated. EXTREMITIES: Nontender, good range of motion, no pitting or edema. NEUROLOGICAL: No focal neurological deficits. Moves all extremities spontaneously Motor and sensory grossly intact on exam. PSYCH: Normal mood, normal affect. SKIN: Warm, Dry, normal turgor, no rashes or lesions noted on exposed skin TRAVEL OUTSIDE OF THE [place] IN LAST 30 DAYS: No - Related Data Allergies/Adverse Reactions: No Known Allergies Allergy (Verified 09/22/18 12:13) Past Medical History - Social History Smoking Status: Never Smoker Family History: Reviewed & Not Pertinent - Past Medical History Cardiac Medical History: Denies: Hx Congestive Heart Failure, Hx Heart Attack, Hx Hypertension Pulmonary Medical History: Reports: Hx Asthma, Hx Bronchitis - 08/25/2018 Denies: Hx COPD, Hx Pneumonia, Hx Tuberculosis Neurological Medical History: Denies: Hx Seizures Renal/ Medical History: Reports: Hx Ovarian Cysts. Denies: Hx End Stage Renal Disease, Hx Kidney Stones, Hx Peritoneal Dialysis GI Medical History: Denies: Hx Cirrhosis, Hx Gastroesophageal Reflux Disease, Hx Ulcer Musculoskeletal Medical History: Denies Hx Arthritis, Denies Hx Multiple Sclerosis Psychiatric Medical History: Reports: Hx Depression Denies: Hx Bipolar Disorder, Hx Schizophrenia Past Surgical History: Reports: Hx Gynecologic Surgery - ovarian cysts, ectopic - Immunizations Immunizations up to date: Yes Hx Diphtheria, Pertussis, Tetanus Vaccination: Yes Physical Exam - Vital signs Vitals: Temp Pulse Resp BP Pulse Ox 97.8 F 99 20 123/70 100 09/28/18 05:37 09/28/18 05:37 09/28/18 05:37 09/28/18 05:37 09/28/18 05:37 Course - Re-evaluation Re-evalutation: Patient seen and examined vital signs reviewed. Laboratory data and imaging were ordered as appropriate for the patient's presenting symptoms and complaint, with consideration of any critical or life threatening conditions that may be associated with their obtained history and exam as noted above. Patient was treated with IV Zofran, and fentanyl initially, she was still having some abdominal pain, so repeat dose of pain medication with Dilaudid was given. Patient continued to have abdominal pain, results were reviewed, and demonstrated unremarkable blood work, hCG was trending down, her abdominal x- ray, demonstrated significant constipation, which is likely the cause the patien t's pain, she was given a dose of magnesium citrate, and IM Bentyl, which did seem to improve her symptoms, she did not have a bowel movement in the ED, I discussed with her at length, that we could do a suppository or enema here, she declined having this, would prefer to try MiraLAX at home, patient given a prescription, and was discharged home. Evaluation was most consistent with constipation, abdominal pain Results were discussed with the patient at this point, after careful consideration I feel that that patient can be discharged from the emergency department, the patient was educated treatments and reasons to return to the emergency department based on their presumed diagnosis as noted above, they were advised to followup with a primary care physician in 2-3 days. Patient was agreeable to plan of care. *Note is created using voice recognition software and may contain spelling, sy ntax or grammatical errors. Laboratory 09/28/18 09/28/18 09/28/18 06:40 06:40 06:40 WBC 11.0 H RBC 4.19 Hgb 10.8 L Hct 32.5 L MCV 78 L MCH 25.7 L MCHC 33.2 RDW 23.2 H Plt Count 438 Seg Neutrophils % 74.9 Lymphocytes % 16.0 Monocytes % 6.6 Eosinophils % 2.0 Basophils % 0.5 Absolute Neutrophils 8.2 Absolute Lymphocytes 1.8 Absolute Monocytes 0.7 Absolute Eosinophils 0.2 Absolute Basophils 0.1 Sodium 140.1 Potassium 4.0 Chloride 105 Carbon Dioxide 26 Anion Gap 9 BUN 8 Creatinine 0.71 Est GFR ( Amer) > 60 Est GFR (Non-Af Amer) > 60 Glucose 89 Calcium 9.5 Total Bilirubin 0.3 Direct Bilirubin 0.2 Neonat Total Bilirubin Not Reportable Neonat Direct Bilirubin Not Reportable Neonat Indirect Bili Not Reportable AST 23 ALT 19 Alkaline Phosphatase 45 Total Protein 7.2 Albumin 4.0 Lipase 132.7 Beta HCG, Quant 362.71 H Total Beta HCG POSITIVE Urine Color Urine Appearance Urine pH Ur Specific [place] Urine Protein Urine Glucose (UA) Urine Ketones Urine Blood Urine Nitrite Urine Bilirubin Urine Urobilinogen Ur Leukocyte Esterase Urine WBC (Auto) Urine RBC (Auto) Squamous Epi Cells Auto Urine Mucus (Auto) Urine Ascorbic Acid Urine HCG, Qual 09/28/18 07:25 WBC RBC Hgb Hct MCV MCH MCHC RDW Plt Count Seg Neutrophils % Lymphocytes % Monocytes % Eosinophils % Basophils % Absolute Neutrophils Absolute Lymphocytes Absolute Monocytes Absolute Eosinophils Absolute Basophils Sodium Potassium Chloride Carbon Dioxide Anion Gap BUN Creatinine Est GFR ( Amer) Est GFR (Non-Af Amer) Glucose Calcium Total Bilirubin Direct Bilirubin Neonat Total Bilirubin Neonat Direct Bilirubin Neonat Indirect Bili AST ALT Alkaline Phosphatase Total Protein Albumin Lipase Beta HCG, Quant Total Beta HCG Urine Color YELLOW Urine Appearance SLIGHTLY-CLOUDY Urine pH 7.0 Ur Specific [place] 1.019 Urine Protein NEGATIVE Urine Glucose (UA) NEGATIVE Urine Ketones NEGATIVE Urine Blood LARGE H Urine Nitrite NEGATIVE Urine Bilirubin NEGATIVE Urine Urobilinogen NEGATIVE Ur Leukocyte Esterase NEGATIVE Urine WBC (Auto) 2 Urine RBC (Auto) 131 Squamous Epi Cells Auto 1 Urine Mucus (Auto) FEW Urine Ascorbic Acid NEGATIVE Urine HCG, Qual POSITIVE H Abdomen X-Ray 09/28/18 06:59 IMPRESSION: Nonobstructive pattern of bowel gas. Gas and stool present to the rectum. There is a large burden of stool in the colon. No free air in the abdomen on supine and erect views. - Vital Signs Vital signs: Temp Pulse Resp BP Pulse Ox 97.9 F 66 14 136/83 H 100 09/28/18 12:10 09/28/18 12:10 09/28/18 12:10 09/28/18 12:10 09/28/18 12:10 - Laboratory Result Diagrams: 09/28/18 06:40 09/28/18 06:40 Laboratory results interpreted by me: 09/28/18 09/28/18 09/28/18 06:40 06:40 07:25 WBC 11.0 H Hgb 10.8 L Hct 32.5 L MCV 78 L MCH 25.7 L RDW 23.2 H Beta HCG, Quant 362.71 H Urine Blood LARGE H Urine HCG, Qual POSITIVE H Discharge - Discharge Clinical Impression: Abdominal pain Qualifiers: Abdominal location: unspecified location Qualified Code(s): R10.9 - Unspecified abdominal pain Constipation Qualifiers: Constipation type: unspecified constipation type Qualified Code(s): K59.00 - Constipation, unspecified Condition: Stable Disposition: HOME, SELF-CARE Instructions: Abdominal Pain ([facility]), Constipation ([facility]) Additional Instructions: Please take medications as prescribed, you can take the MiraLAX twice daily for the first 3 days, and then daily after that, to maintain normal bowel movements, you can take the Bentyl 4 times daily, he can also take this as needed. If your symptoms worsen or do not improve, do not hesitate to return to the emergency department. Prescriptions: Dicyclomine HCl [Bentyl 20 mg Tablet] 20 mg PO QID #20 tablet Polyethylene Glycol 3350 [Miralax] 17 gm PO DAILY #238 gm Referrals: SHAKILA BENNETT DO [Primary Care Provider] - Follow up in 3-5 days
[2018-09-28 07:15] LABS: ALANINE AMINOTRANSFERASE 19 U/L (9-52); ALKALINE PHOSPHATASE 45 U/L (38-126); ANION GAP 9 (5-19); ASPARTATE AMINO TRANSFERASE 23 U/L (14-36); BILIRUBIN,DIRECT 0.2 mg/dL (0.0-0.4); BILIRUBIN,TOTAL 0.3 mg/dL (0.2-1.3); BLOOD UREA NITROGEN 8 mg/dL (7-20); CALCIUM 9.5 mg/dL (8.4-10.2); CARBON DIOXIDE 26 mmol/L (22-30); CHLORIDE 105 mmol/L (98-107); GLUCOSE 89 mg/dL (75-110); LIPASE 132.7 U/L (23-300); SODIUM 140.1 mmol/L (137-145); TOTAL PROTEIN 7.2 g/dL (6.3-8.2)
[2018-09-28] MEDS ORDERED: HYDROMORPHONE HCL INJ/PF 2 MG/ML AMPULE IV ONE (08:11)
[2018-09-28 08:16] LABS: APPEARANCE,URINE SLIGHTLY-CLOUDY; BILIRUBIN,URINE NEGATIVE (NEGATIVE); COLOR,URINE YELLOW; GLUCOSE, URINE NEGATIVE (NEGATIVE); KETONES,URINE NEGATIVE (NEGATIVE); LEUKOCYTE ESTERASE,URINE NEGATIVE (NEGATIVE); NITRITE,URINE NEGATIVE (NEGATIVE); PROTEIN,URINE NEGATIVE (NEGATIVE); URINE SPECIFIC GRAVITY 1.019; UROBILINOGEN,URINE NEGATIVE mg/dL (<2.0)
--- NOTE | 2018-09-28 09:03 | RADIOLOGY REPORT (SQ) ---
EXAM DESCRIPTION: ABDOMEN 2 VIEWS COMPLETED DATE/TIME: 09/28/2018 8:48 am REASON FOR STUDY: post op pain, abd distention COMPARISON: None. NUMBER OF VIEWS: Two views. TECHNIQUE: Supine and erect/decubitus radiographic images of the abdomen acquired. LIMITATIONS: None. FINDINGS: FREE AIR: None. No abnormal gas collections. LUNG BASES: Clear. BOWEL GAS PATTERN: Nonobstructive pattern. No dilated loops or air fluid levels. CALCIFICATIONS: No suspicious calcifications. SOFT TISSUES: No gross mass or suggestion of organomegaly. HARDWARE: None in the abdomen. BONES: No acute fracture. No worrisome bone lesions. OTHER: No other significant finding. IMPRESSION: Nonobstructive pattern of bowel gas. Gas and stool present to the rectum. There is a l arge burden of stool in the colon. No free air in the abdomen on supine and erect views. TECHNICAL DOCUMENTATION: JOB ID: [id number] [employer]- All Rights Reserved Reading location - IP/workstation name: [email or web address]
[2018-09-28] MEDS ORDERED: METOCLOPRAMIDE HCL INJ/PF 10 MG/2 ML SDV IV ONE (09:13)
[2018-09-28] MEDS ORDERED: MAGNESIUM CITRATE 296 ML BOTTLE PO ONE (09:13)
[2018-09-28] MEDS ORDERED: DICYCLOMINE HCL INJ 20 MG/2 ML AMPULE IM ONE (10:17)
[2018-09-28 12:11] VITALS: BP 136/83
== END 2018-09-28 12:20 | disposition home or self-care (01) ==
LOC: ER 05:32
DX: K59.00 Constipation, unspecified (principal); R10.9 Unspecified abdominal pain; R10.30 Lower abdominal pain, unspecified; R10.2 Pelvic and perineal pain; G89.18 Other acute postprocedural pain; Z98.890 Other specified postprocedural states; J45.909 Unspecified asthma, uncomplicated
CPT/HCPCS: 99283; 96372; 96361; 96374; 96375; 36415; 84702; 83690; 85025; 81025; 80053; 81001; 74019; J3490; J0500; J3010; J2765; J1170; J2405; J7030

== ENCOUNTER 2018-09-28 21:34 | Emergency (ER) | payer MEDICAID ==
[2018-09-28] MEDS ORDERED: ONDANSETRON HCL INJ/PF 4 MG/2 ML SDV IV ONE (23:21)
[2018-09-28] MEDS ORDERED: HYDROMORPHONE HCL INJ/PF 2 MG/ML AMPULE IV ONE (23:21)
[2018-09-28] MEDS ORDERED: NORMAL SALINE 1000 ML 1,000 ML IV ONE (23:25)
--- NOTE | 2018-09-28 23:35 | ER Document Report ---
ED General - General Chief Complaint: OB Problem (<20wks) Stated Complaint: VAGINAL BLEEDING Time Seen by Provider: 09/28/18 22:25 Primary Care Provider: SHAKILA BENNETT DO [Primary Care Provider] - Follow up as needed Mode of Arrival: Medic Information source: Patient TRAVEL OUTSIDE OF THE [place] IN LAST 30 DAYS: No - HPI Patient complains to provider of: Pelvic pain, passing placenta, wants to see mental health Onset: Other - Past couple of days Onset/Duration: Constant Quality of pain: Sharp Severity: Severe Pain Level: 5 Associated symptoms: denies: Chills, Fever, Nausea, Vomiting Exacerbated by: Denies Relieved by: Denies Similar symptoms previously: No Recently seen / treated by doctor: No Notes: 28-year-old -[place] female coming in today with chief complaint of pelvic pain, passing placenta, and wanting mental health consultation. The only couple of days ago she did have an ectopic surgery to remove an ectopic from her right fallopian tube. Surgery was successful. Patient comes in [facility] via ambulance complaining that she is still passing her placenta and is having terrific pain and bleeding. Also states that she is nauseous. Denies fevers and shaking chills. Denies any foul-smelling vaginal discharge. Denies nausea vomiting diarrhea - Related Data Allergies/Adverse Reactions: No Known Allergies Allergy (Verified 09/22/18 12:13) Past Medical History - General Information source: Patient - Social History Smoking Status: Smoker,Current Status Unk Family History: Reviewed & Not Pertinent - Past Medical History Cardiac Medical History: Denies: Hx Congestive Heart Failure, Hx Heart Attack, Hx Hypertension Pulmonary Medical History: Reports: Hx Asthma, Hx Bronchitis - 08/25/2018 Denies: Hx COPD, Hx Pneumonia, Hx Tuberculosis Neurological Medical History: Denies: Hx Seizures Renal/ Medical History: Reports: Hx Ovarian Cysts. Denies: Hx End Stage Renal Disease, Hx Kidney Stones, Hx Peritoneal Dialysis GI Medical History: Denies: Hx Cirrhosis, Hx Gastroesophageal Reflux Disease, Hx Ulcer Musculoskeletal Medical History: Denies Hx Arthritis, Denies Hx Multiple Sclerosis Psychiatric Medical History: Reports: Hx Depression Denies: Hx Bipolar Disorder, Hx Schizophrenia Past Surgical History: Reports: Hx Gynecologic Surgery - ovarian cysts, ectopic - Immunizations Immunizations up to date: Yes Hx Diphtheria, Pertussis, Tetanus Vaccination: Yes Review of Systems - Review of Systems Notes: Constitutional: No fevers. No chills. EENT: No eye redness. No eye pain. No ear pain. No sore throat. Cardiovascular: No chest pain. No palpitations. Respiratory: No cough. No shortness of breath. No respiratory distress. Gastrointestinal: No abdominal pain. No nausea, vomiting, or diarrhea. Genitourinary: Positive pelvic pain, positive vaginal bleeding, positive nausea Musculoskeletal: Atraumatic. No swelling. No deformities. Skin: No rash or lesions. Lymphatic: No swollen lymph nodes. Neurologic: No headache. No syncope. Psychiatric: No suicidal or homicidal ideation. Physical Exam - Vital signs Vitals: Temp Pulse Resp BP Pulse Ox 98.8 F 108 H 18 134/80 H 100 09/28/18 21:51 09/28/18 21:51 09/28/18 21:51 09/28/18 21:51 09/28/18 21:51 - Notes Notes: General: Well-developed, well-nourished. In no acute distress. Non-toxic appearing. Cardiac: Well-perfused. Regular rate and rhythm. No murmurs, rubs, or gallops. Pulmonary: No respiratory distress. No cyanosis. Bilateral lung morley are clear to auscultation. Abdominal: Multiple small healing was presumably trocar sites which are noninfected appearing and well approximated. The abdomen is soft. No rigidity. No erythema or heat. There is some tenderness to palpation over the lower mid abdomen and pelvis region. No guarding or rebound HEENT: Head is atraumatic. Conjunctivae not reddened. No tearing. PERRL. EOMI. Orbits atraumatic. No periorbital swelling or erythema. Oropharynx is without erythema, swelling, or exudates. Neck: Supple. No adenopathy. No meningismus. Dermatologic: Warm with good turgor. No rash. Atraumatic. Chest: Atraumatic. No chest wall tenderness to palpation. Musculoskeletal: Moves all extremities well. No range of motion deficits. no muscular or joint tenderness. No paraspinal muscle tenderness. no midline spinal tenderness or step-off. Genitourinary: Examination deferred Neurologic: No gross neurologic deficits. Psychiatric: Normal mood. Patient expresses no suicidal or homicidal Ideation Course - Re-evaluation Re-evalutation: 09/29/18 02:07 Patient's hCG quantitative level has gone down since last draw. Repeat ultrasound does not show any evidence of bleeding. H&H are normal. From a medical standpoint patient is ready for discharge. We will give her Vienna and Zofran take-home packs. Patient had expressed some interest in staying to have mental health evaluate in the morning. Unfortunately she has to get her son to school and does not want to stay for any further evaluation. I suggested that if she still wants to be evaluated that once she gets her son transportation worked out that she can return in the morning and see the mental health provider. I also suggested that instead of seeking pain management in the ER postoperatively she would be better served to see the surgical group who did the procedure on her. I recommended her calling the office of Dr. Rodriguez in the morning or going to the office to request to be seen in the clinic setting. - Vital Signs Vital signs: Temp Pulse Resp BP Pulse Ox 99.0 F 90 18 119/78 100 09/29/18 00:16 09/29/18 00:16 09/29/18 00:16 09/29/18 00:16 09/29/18 00:16 - Laboratory Result Diagrams: 09/29/18 00:03 09/29/18 00:03 Laboratory results interpreted by me: 09/28/18 09/29/18 09/29/18 23:50 00:03 00:03 Hgb 10.6 L Hct 32.2 L MCV 78 L MCH 25.7 L RDW 23.4 H Seg Neuts % (Manual) 79 H Sodium 136.7 L BUN 5 L Beta HCG, Quant 284.78 H Urine Blood SMALL H Urine Ascorbic Acid 40 H Discharge - Discharge Clinical Impression: Postoperative pain, History of ectopic Depression Qualifiers: Depression Type: unspecified Qualified Code(s): F32.9 - Major depressive disorder, single episode, unspecified Condition: Good Disposition: HOME, SELF-CARE Instructions: Pelvic Pain ([facility]) Additional Instructions: Please return in the morning after he gets her son's transportation affairs in order if you would like to see somebody from the mental health department. If you feel that you need to come back tonight at any point to be evaluated please do not hesitate. In terms of your pelvic workup, you can use [place] and Zofran as needed which will be dispensed to you tonight. If you continue to have pain from your surgery, you need to get your pain medications from your surgeon and not from the emergency department. Please call their office in the morning to see if you can get an appointment set up sooner than the ninth. Referrals: SHAKILA BENNETT DO [Primary Care Provider] - Follow up as needed MARCELINO RODRIGUEZ MD [ACTIVE STAFF] - Follow up tomorrow
[2018-09-29 00:15] LABS: APPEARANCE,URINE CLEAR; BILIRUBIN,URINE NEGATIVE (NEGATIVE); COLOR,URINE YELLOW; GLUCOSE, URINE NEGATIVE (NEGATIVE); KETONES,URINE NEGATIVE (NEGATIVE); LEUKOCYTE ESTERASE,URINE NEGATIVE (NEGATIVE); NITRITE,URINE NEGATIVE (NEGATIVE); PROTEIN,URINE NEGATIVE (NEGATIVE); URINE SPECIFIC GRAVITY 1.014; UROBILINOGEN,URINE NEGATIVE mg/dL (<2.0)
[2018-09-29] MEDS ORDERED: HYDROMORPHONE HCL INJ/PF 2 MG/ML AMPULE SUBCUT ONE (00:19)
[2018-09-29 00:30] LABS: ALANINE AMINOTRANSFERASE 22 U/L (9-52); ALBUMIN 4.1 g/dL (3.5-5.0); ALKALINE PHOSPHATASE 51 U/L (38-126); ANION GAP 8 (5-19); ASPARTATE AMINO TRANSFERASE 28 U/L (14-36); BILIRUBIN,DIRECT 0.2 mg/dL (0.0-0.4); BILIRUBIN,TOTAL 0.7 mg/dL (0.2-1.3); BLOOD UREA NITROGEN 5 mg/dL (7-20); CALCIUM 9.3 mg/dL (8.4-10.2); CARBON DIOXIDE 26 mmol/L (22-30); CHLORIDE 103 mmol/L (98-107); GLUCOSE 92 mg/dL (75-110); POTASSIUM 3.6 mmol/L (3.6-5.0); SODIUM 136.7 mmol/L (137-145); TOTAL PROTEIN 7.6 g/dL (6.3-8.2)
[2018-09-29 00:36] LABS: HEMATOCRIT 32.2 % (36.0-47.0); HEMOGLOBIN 10.6 g/dL (12.0-15.5); MEAN CORPUSCULAR HEMOGLOBIN 25.7 pg (27.0-33.4); MEAN CORPUSCULAR HGB CONC 32.9 g/dL (32.0-36.0); MEAN CORPUSCULAR VOLUME 78 fl (80-97); PLATELET COUNT 419 10^3/uL (150-450); RED BLOOD COUNT 4.12 10^6/uL (3.72-5.28); RED CELL DISTRIBUTION WIDTH 23.4 % (11.5-14.0); WHITE BLOOD COUNT 10.1 10^3/uL (4.0-10.5)
[2018-09-29 01:02] LABS: ABSOLUTE LYMPHOCYTES# (MANUAL) 1.7 10^3/uL (0.5-4.7); ABSOLUTE MONOCYTES # (MANUAL) 0.3 10^3/uL (0.1-1.4); BASOPHILS % (MANUAL) 0 % (0-2); EOSINOPHILS % (MANUAL) 1 % (0-6); LYMPHOCYTES % (MANUAL) 16 % (13-45); MONOCYTES % (MANUAL) 3 % (3-13); SEGMENTED NEUTROPHILS % (MAN) 79 % (42-78); TOTAL CELLS COUNTED 100
[2018-09-29 01:12] LABS: HYPOCHROMASIA SLIGHT; POLYCHROMASIA SLIGHT
[2018-09-29 01:13] LABS: ANISOCYTOSIS 3+; PLATELET COMMENT ADEQUATE; POIKILOCYTOSIS 1+; ROULEAUX 1+; SPHEROCYTES 1+
--- NOTE | 2018-09-29 01:34 | RADIOLOGY REPORT (SQ) ---
EXAM DESCRIPTION: US TRANSVAGINAL COMPLETED DATE/TME: 09/28/2018 23:21 CLINICAL HISTORY: 28 years, Female, passing placenta/retained products after ectopic COMPARISON: 09/24/2018 ultrasound TECHNIQUE: Transverse and longitudinal transvaginal sonographic images of the pelvis LIMITATIONS: None. FINDINGS: The uterus measures 9.5 x 4.6 x 4.5 cm. Endometrium measures 7.7 mm in thickness. The myometrium is homogenous. Small amount of fluid within the endometrial canal. The right ovary measures 4 by 2 x 2 centimeters, the left 3 x 1 x 2 cm. Normal flow to each ovary. Previously described gestational sac and pole consistent with ectopic of the right ovary is again noted. No solid adnexal mass. No free fluid. IMPRESSION: Right ovarian ectopic again noted. Small amount of fluid within the endocervical canal. No free fluid. copyright 2010 [employer]- All Rights Reserved
[2018-09-29 02:12] VITALS: BP 122/75
[2018-09-29] MEDS ORDERED: HYDROCODONE/ACETAMINOPHEN 5-325 MG (6 TAB/ER DISP) PO PRN (02:15)
[2018-09-29] MEDS ORDERED: ONDANSETRON ODT 4 MG TAB (6 TAB/ER DISP) PO PRN (02:16)
== END 2018-09-29 02:30 | disposition home or self-care (01) ==
LOC: ER 21:34
DX: F32.9 Major depressive disorder, single episode, unspecified (principal); G89.18 Other acute postprocedural pain; N93.9 Abnormal uterine and vaginal bleeding, unspecified; R10.2 Pelvic and perineal pain; R11.0 Nausea; Z98.890 Other specified postprocedural states; F17.200 Nicotine dependence, unspecified, uncomplicated
CPT/HCPCS: 99284; 96372; 96361; 96374; 96375; 36415; 84702; 85025; 80053; 81001; 76817; J1170 ×2; J2405; J7030